=== PATIENT | female | born 1975 | race Caucasian/White ===

== ENCOUNTER → 2017-06-22 08:55 | Outpatient (CLI) | payer OTHER, SELFPAY ==
--- NOTE | 2017-06-22 08:59 | ECHOD_ITS ---
Reason For Study: PALPITATIONS Procedure This was a 2D Doppler, Color Flow transthoracic echocardiogram. Exam performed in department. Left Ventricle Normal LV size. Left ventricular systolic function is normal. The estimated ejection fraction is 55 %. No evidence for diastolic dysfunction. No regional wall motion abnormalities noted. Right Ventricle Normal RV size. Normal systolic function. Atria Normal left atrium. Normal right atrium. Mitral Valve Normal mitral valve. Mild (1+) eccentric mitral valve insufficiency. Tricuspid Valve Normal tricuspid valve. Mild tricuspid valve insufficiency. Pulmonary artery systolic pressure is 24 mmHg. Aortic Valve Normal aortic valve. Trisinus/trileaflet aortic valve. Pulmonic Valve Normal pulmonic valve. Great Vessels Normal aortic root. The pulmonary artery is normal size. Normal inferior vena cava. Pericardium/Pleural Trivial pericardial effusion. MMode/2D Measurements & Calculations LVIDd: 5.0 cm IVSd: 0.86 cm Ao root diam: 3.5 cm LVIDs: 3.4 cm LVPWd: 0.96 cm LA dimension: 3.5 cm RVDd: 3.8 cm FS: 31.2 % LAV(MOD-bp): 63.7 ml EDV(MOD-sp4): 135.1 ml EDV(MOD-sp2): 119.8 ml LAV(MOD-bp) Indexed: 36.3 ml/m2 ESV(MOD-sp4): 67.0 ml EF(MOD-sp2): 56.7 % LAV(MOD-sp2): 72.9 ml EF(MOD-sp4): 50.4 % LAV(MOD-sp4): 43.6 ml SV(MOD-sp4): 68.0 ml SV(MOD-sp2): 67.9 ml LA A4 area: 16.0 cm2 RA A4 area: 17.7 cm2 Doppler Measurements & Calculations MV E max aubrie: 81.3 cm/sec Ao V2 max: 145.5 cm/sec LV V1 max: 104.1 cm/sec MV A max aubrie: 63.5 cm/sec Ao max P.5 mmHg LV V1 max P.3 mmHg MV E/A: 1.3 PA V2 max: 96.1 cm/sec PI end-d aubrie: 107.2 cm/sec TR max aubrie: 217.9 cm/sec TR max P.0 mmHg Interpretation Summary Normal LV size. Left ventricular systolic function is normal. The estimated ejection fraction is 55 %. No evidence for diastolic dysfunction. Mild tricuspid valve insufficiency. Pulmonary artery systolic pressure is 24 mmHg. Ordering Physician: Kemar Adler Referring Physician: Kemar Adler Performed By: Naila Be, OFELIACS, RVT
== END ==
PROVIDERS: Family Provider Family Medicine; PCP Family Medicine; Visit Provider Family Medicine
DX: R06.00 Dyspnea, unspecified (principal); I10 Essential (primary) hypertension; R00.2 Palpitations
CPT/HCPCS: 93306

== ENCOUNTER → 2017-06-24 08:55 | Outpatient (CLI) | payer OTHER, SELFPAY ==
--- NOTE | 2017-06-24 08:57 | BI_ITS ---
MAMMOGRAPHY - BILATERAL SCREENING REASON FOR EXAM: Female, 42 years old. Routine annual screening examination. PERTINENT HISTORY: Non-contributory. TECHNIQUE: Digital bilateral breast paty (3D mammographic acquisition) in the CC and MLO projections. 2-D mediolateral oblique (MLO) and craniocaudad (CC) views of both breasts were obtained. CAD: Full Field Digital Mammography with Computer Added Detection was performed. COMPARISON: Comparison is made with prior study dated September 27, 2016 and February 12, 2015. FINDINGS: Breast Composition: The breasts are extremely dense, which lowers the sensitivity of mammography. There are no dominant masses or suspicious calcifications. No other significant abnormalities are identified. There has been no significant change since the prior study. BI/SCREENING MAMM (CAD), BILAT IMPRESSION: Stable bilateral screening mammogram. Yearly follow-up mammogram recommended. (A) ASSESSMENT CATEGORY: BIRADS Category 1: Negative. A letter regarding these results will be sent to the patient by the facility within 30 days. Approximately 10% of breast cancers are not detected by mammography. A normal mammogram should not delay biopsy of a clinically suspicious abnormality. [id number] Electronically Signed: Derick Finch MD at 10:48 EDT Tel [phone], Service support ,
--- NOTE | 2017-06-24 08:59 | BD_ITS ---
STUDY: DUAL ENERGY X-RAY ABSORPTIOMETRY / DXA REASON FOR EXAM: Female, 42 years old. Loss of height. TECHNIQUE: Bone Mineral Density (BMD) measurements of lumbar spine and bilateral hips were obtained. COMPARISON: None. FINDINGS: Lumbar Spine (L1-L4): g/cm2 (1.069) / T-score (-0.9) / Z-score (-0.9) Findings are suggestive of normal bone density with a low fracture risk. Left Femur Total: g/cm2 (1.017) / T-score (0.1) / Z-score (0.3) Left Femoral Neck: g/cm2 (0.955) / T-score (-0.6) / Z-score (-0.2) Right Femur Total: g/cm2 (0.999) / T-score (-0.1) / Z-score (0.2) Right Femoral Neck: g/cm2 (0.997) / T-score (-0.3) / Z-score (0.1) BD/Dexa Bone Density Study IMPRESSION: The patient is considered normal as outlined below according to [place] Organization (WHO) criteria with a low fracture risk. Reference Information: The T-score is the number of standard deviations above or below the standard which is normal for young adults at their peak bone mineral density. The World Health Organization (WHO) interprets the T-scores as follows: Above -1 Normal bone density Between -1 and -2.5 Osteopenia Equal to / or below -2.5 Osteoporosis As a practical clinical guideline, osteopenia may be graded as follows: Mild -1 through -1.5 Moderate -1.6 through -2.0 Severe -2.1 through -2.4 The Z-score is the number of standard deviations above or below age-matched controls. A Z-score of less than -1.5 would be considered abnormal. References: 1. NIH Osteoporosis and Related Bone Diseases http://www.osteo.org 2. International Society for Clinical Densitometry http://www.iscd.org 3. National Osteoporosis Foundation http://www.nof.org Electronically Signed: Derick Finch MD at 10:37 EDT Tel [phone], Service support ,
== END ==
PROVIDERS: Family Provider Family Medicine; PCP Family Medicine; Visit Provider Obstetrics & Gynecology
DX: Z12.31 Encounter for screening mammogram for malignant neoplasm of breast (principal); R29.890 Loss of height
CPT/HCPCS: 77062; 77067; 77080; G0279

== ENCOUNTER → 2017-11-09 07:51 | Outpatient (CLI) | payer OTHER, SELFPAY ==
[2017-11-09 12:16] LABS: Absolute Lymphocyte Count 0.65 X10^3/ul (0.83-4.51); Absolute Neutrophil Count 2.9 X10^3/uL (2.0-7.7); Basophil# 0.02 X10^3/uL; Basophil% 0.5 % (0-1); Eosinophil# 0.03 X10^3/uL; Eosinophils% 0.8 % (0-5); Hematocrit 31.8 % (37-47); Hemoglobin 10.6 g/dl (12.0-15.0); Lymphocyte # 0.65 X10^3/ul (4.0); Lymphocyte % 16.7 % (19-41); Mean Corp Hgb Conc 33.3 g/gl (32-36); Mean Corpuscular Hgb 32.8 pg (27.0-32.0); Mean Corpuscular Volume 98.5 fL (81-99); Mean Platelet Vol. 8.3 fl (6.2-12.0); Monocyte% 7.7 % (0-10); Neutrophil # 2.89 X10^3/uL (2.7-7.7); Platelet Count 170 K/mm3 (150-450); RBC Distribution Width CV 13.6 % (11.6-14.6); RBC Distribution Width SD 49.3 fl (35.1-43.9); Red Blood Count 3.23 M/mm3 (4.2-5.4); White Blood Count 3.9 K/mm3 (4.4-11.0)
[2017-11-09 12:17] LABS: POSITIVE COUNT NO; POSITIVE DIFFERENTIAL NO; POSITIVE MORPHOLOGY NO
[2017-11-09 12:39] LABS: ALB/GLOB Ratio 1.2 RATIO (0.9-2.4); AST(SGOT) 50 U/L (15-37); Alanine Aminotransfer ALT/SGPT 47 U/L (13-56); Albumin, Serum 3.5 g/dL (3.2-5.0); Alkaline Phosphatase 46 U/L (45-117); Anion Gap 6 (5-15); BUN 16 mg/dL (7-18); BUN/Creat Ratio 20.1 RATIO (10-20); Calcium,Total 8.4 mg/dL (8.5-10.1); Chloride 103 mmol/L (98-107); Cholesterol 172 mg/dL (200); EST Glomerular Filtration Rate 85 mL/min (>60); Est Glom Filt Rate - Afr Amer 103 mL/min (>60); Ferritin 27 ng/mL (8-252); Glucose 78 mg/dL (74-106); High Density Lipoprotein 80 mg/dL; Iron 66 ug/dL (50-170); Potassium 4.4 mmol/L (3.5-5.1); Protein, Total 6.5 g/dL (6.4-8.2); Sodium Level 138 mmol/L (136-145); Triglycerides 60 mg/dL; Very Low Density Lipoprotein 12 mg/dL (5-40)
[2017-11-10 10:03] LABS: Vitamin B12 686 pg/mL (211-911); Vitamin D,25 Hydroxy 70.4 ng/mL (29.95-100.01)
== END ==
PROVIDERS: Family Provider Family Medicine; PCP Family Medicine; Visit Provider Family Medicine
DX: I10 Essential (primary) hypertension (principal); D64.9 Anemia, unspecified; R63.0 Anorexia; E55.9 Vitamin D deficiency, unspecified; R53.83 Other fatigue
CPT/HCPCS: 36415; 80053; 80061; 82306; 82607; 82728; 83540; 85025

== ENCOUNTER → 2017-12-17 09:13 | Outpatient (CLI) | payer OTHER, SELFPAY ==
--- NOTE | 2017-12-17 09:20 | EKG12_ITS ---
Test Reason : PALPS,HTN Blood Pressure : / mmHG Vent. Rate : 059 BPM Atrial Rate : 059 BPM P-R Int : 176 ms QRS Dur : 088 ms QT Int : 426 ms P-R-T Axes : 073 010 051 degrees QTc Int : 421 ms Sinus bradycardia Low voltage QRS Borderline ECG Confirmed by STEVEN BLAND, MILVIA ([id number]), editorial cartoonist POPPY ROSAS ([id number]) on 12/20/2017 2:22:27 PM Referred By: KEN FERRER Confirmed By:MILVIA HARRIS MD
== END ==
PROVIDERS: Family Provider Family Medicine; PCP Family Medicine; Visit Provider Family Medicine
DX: I10 Essential (primary) hypertension (principal); R00.2 Palpitations
CPT/HCPCS: 93005; 93225; 93226

== ENCOUNTER → 2018-05-05 08:46 | Outpatient (CLI) | payer OTHER, SELFPAY ==
[2018-05-05 08:46] VITALS: BMI 18.6
[2018-05-05 12:02] LABS: Absolute Lymphocyte Count 1.04 X10^3/ul (0.83-4.51); Absolute Neutrophil Count 3.1 X10^3/uL (2.0-7.7); Basophil# 0.04 X10^3/uL; Basophil% 0.8 % (0-1); Eosinophil# 0.08 X10^3/uL; Eosinophils% 1.7 % (0-5); Hematocrit 42.1 % (37-47); Hemoglobin 13.4 g/dl (12.0-15.0); Lymphocyte # 1.04 X10^3/ul (4.0); Lymphocyte % 21.7 % (19-41); Mean Corp Hgb Conc 31.8 g/gl (32-36); Mean Corpuscular Hgb 29.6 pg (27.0-32.0); Mean Corpuscular Volume 93.1 fL (81-99); Mean Platelet Vol. 8.9 fl (6.2-12.0); Monocyte# 0.48 X10^3/uL; Neutrophil # 3.11 X10^3/uL (2.7-7.7); Platelet Count 197 K/mm3 (150-450); RBC Distribution Width CV 14.6 % (11.6-14.6); RBC Distribution Width SD 49.5 fl (35.1-43.9); Red Blood Count 4.52 M/mm3 (4.2-5.4); White Blood Count 4.8 K/mm3 (4.4-11.0)
[2018-05-05 12:03] LABS: POSITIVE COUNT NO; POSITIVE DIFFERENTIAL NO; POSITIVE MORPHOLOGY NO
[2018-05-05 12:18] LABS: AST(SGOT) 39 U/L (15-37); Alanine Aminotransfer ALT/SGPT 43 U/L (13-56); Albumin, Serum 3.8 g/dL (3.2-5.0); Alkaline Phosphatase 68 U/L (45-117); Anion Gap 9 (5-15); BUN 21 mg/dL (7-18); Calcium,Total 8.4 mg/dL (8.5-10.1); Chloride 104 mmol/L (98-107); Cholesterol 211 mg/dL (200); Creatinine, Serum 0.88 mg/dL (0.55-1.02); EST Glomerular Filtration Rate 76 mL/min (>60); Est Glom Filt Rate - Afr Amer 92 mL/min (>60); Ferritin 13 ng/mL (8-252); Globulin 3.7 g/dL (2.2-4.2); Glucose 91 mg/dL (74-106); High Density Lipoprotein 118 mg/dL; Iron 43 ug/dL (50-170); Potassium 4.1 mmol/L (3.5-5.1); Protein, Total 7.5 g/dL (6.4-8.2); Sodium Level 141 mmol/L (136-145); Triglycerides 45 mg/dL; Very Low Density Lipoprotein 9 mg/dL (5-40)
[2018-05-05 12:20] LABS: Vitamin B12 951 pg/mL (211-911); Vitamin D,25 Hydroxy 40.5 ng/mL (29.95-100.01)
== END ==
PROVIDERS: Family Provider Family Medicine; PCP Family Medicine; Visit Provider Family Medicine
DX: Z00.00 Encounter for general adult medical examination without abnormal findings (principal); I10 Essential (primary) hypertension; E55.9 Vitamin D deficiency, unspecified; E46 Unspecified protein-calorie malnutrition; D64.9 Anemia, unspecified
CPT/HCPCS: 36415; 80053; 80061; 82306; 82607; 82728; 83540; 85025

== ENCOUNTER 2021-06-23 13:13 | Outpatient (CLI) | payer OTHER, SELFPAY ==
--- NOTE | 2021-06-23 13:16 | BI_ITS ---
MAMMOGRAPHY - BILATERAL SCREENING REASON FOR EXAM: Female, 46 years old. Routine annual screening examination. PERTINENT HISTORY: Non-contributory. TECHNIQUE: Digital bilateral breast jordin (3D mammographic acquisition) in the CC and MLO projections. 2-D mediolateral oblique (MLO) and craniocaudad (CC) views of both breasts were obtained. CAD: Full Field Digital Mammography with Computer Added Detection was performed. COMPARISON: Comparison is made with prior study 06/24/2017 and 03/30/2006. FINDINGS: Breast Composition: The breasts are heterogeneously dense, which may obscure small masses. There are no dominant masses or suspicious calcifications. Since prior study, the amount of breast tissue has decreased. 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 Stable benign-appearing bilateral axillary lymph nodes. No other significant abnormalities are identified. BI/SCRN MAMM (CAD)W/JORDIN BILAT IMPRESSION: Stable bilateral screening mammogram. Yearly follow-up mammogram recommended. (A) ASSESSMENT CATEGORY: BIRADS Category 2: Benign. A letter regarding these results will be sent to the patient by the facility within 30 days. Approximately 10% of breast cancers are not detected by mammography. A normal mammogram should not delay biopsy of a clinically suspicious abnormality. [id number] Electronically Signed: Derick Finch MD at 14:01 EDT ,
== END 2021-06-23 23:59 | disposition home or self-care (01) ==
PROVIDERS: PCP Family Medicine; Visit Provider Family Medicine
DX: Z12.31 Encounter for screening mammogram for malignant neoplasm of breast (principal)
CPT/HCPCS: 77063; 77067

== ENCOUNTER → 2021-10-03 | Outpatient (CLI) | payer OTHER, SELFPAY ==
[2021-10-03 13:53] LABS: Color, Urine Yellow (Yellow); Glucose, Dipstick Normal (Normal); Ketone-Dipstick Negative (Negative); Leukocyte Esterase-Dipstick 25 /ul (Negative); Nitrite-Dipstick Negative (Negative); Occult Blood-Urine Negative /ul (Negative); Protein-Dipstick 15 mg/dl (Negative); Urine Bilirubin Dipstick Negative (Negative); Urine Clarity Clear (Clear); Urine Urobilinogen Normal (Normal)
[2021-10-03 13:57] LABS: Hematocrit 36.8 % (37-47); Mean Corp Hgb Conc 35.3 g/dL (32-36); Mean Corpuscular Hgb 34.1 pg (27.0-32.0); Mean Corpuscular Volume 96.6 fL (81-99); Mean Platelet Vol. 9.9 fl (6.2-12.0); Platelet Count 159 K/mm3 (150-450); RBC Distribution Width CV 11.9 % (11.6-14.6); RBC Distribution Width SD 41.6 fl (35.1-43.9); Red Blood Count 3.81 M/mm3 (4.2-5.4); White Blood Count 4.4 K/mm3 (4.4-11.0)
[2021-10-03 15:13] LABS: ALB/GLOB Ratio 1.1 RATIO (0.9-2.4); AST(SGOT) 57 U/L (15-37); Alanine Aminotransfer ALT/SGPT 63 U/L (13-56); Albumin, Serum 3.8 g/dL (3.2-5.0); Alkaline Phosphatase 46 U/L (45-117); Anion Gap 7 (5-15); BUN 13 mg/dL (7-18); BUN/Creat Ratio 13.3 RATIO (10-20); Calcium,Total 8.9 mg/dL (8.5-10.1); Chloride 108 mmol/L (98-107); Cholesterol 151 mg/dL (200); Creatinine, Serum 0.97 mg/dL (0.55-1.02); EST Glomerular Filtration Rate 66 mL/min (>60); Est Glom Filt Rate - Afr Amer 80 mL/min (>60); Ferritin 183 ng/mL (8-252); Globulin 3.5 g/dL (2.2-4.2); Glucose 87 mg/dL (74-106); High Density Lipoprotein 46 mg/dL; Iron 128 ug/dL (50-170); Iron Binding Capacity,Total 345 ug/dL (250-450); PERCENT IRON SATURATION 37.1 % (15.0-55.0); Potassium 3.9 mmol/L (3.5-5.1); Protein, Total 7.3 g/dL (6.4-8.2); Sodium Level 140 mmol/L (136-145); Thyroid Stim Hormone (TSH) 2.72 uIU/mL (0.358-3.74); Triglycerides 161 mg/dL; Very Low Density Lipoprotein 32 mg/dL (5-40)
[2021-10-06 08:08] LABS: Vitamin B12 575 pg/mL (211-911); Vitamin D,25 Hydroxy 77.9 ng/mL
== END | disposition home or self-care (01) ==
LOC: LAB 12:32
PROVIDERS: PCP Family Medicine; Referring Provider Physician Assistant; Visit Provider Physician Assistant
DX: Z79.899 Other long term (current) drug therapy (principal)
CPT/HCPCS: 36415; 80053; 80061; 81002; 82306; 82607; 82728; 82746; 83540; 83550; 84443; 85027

== ENCOUNTER → 2023-10-25 | Outpatient (CLI) | payer OTHER, SELFPAY ==
--- NOTE | 2023-10-25 14:11 | BI_ITS ---
MAMMOGRAPHY - BILATERAL SCREENING REASON FOR EXAM: Female, 48 years old. Routine annual screening examination. PERTINENT HISTORY: Non-contributory. TECHNIQUE: Digital bilateral breast jordin (3D mammographic acquisition) in the CC and MLO projections. 2-D mediolateral oblique (MLO) and craniocaudad (CC) views of both breasts were obtained. CAD: Full Field Digital Mammography with Computer Added Detection was performed. COMPARISON: Comparison is made with prior study of June 23, 2021 and June 24, 2017. FINDINGS: Breast Composition: The breasts are heterogeneously dense, which may obscure small masses. There are no dominant masses or suspicious calcifications. Stable small benign-appearing bilateral axillary lymph nodes. No other significant abnormalities are identified. There has been no significant change since the prior study. BI/SCRN MAMM (CAD)W/JORDIN BILAT IMPRESSION: Stable bilateral screening mammogram. Yearly follow-up mammogram recommended. (A) ASSESSMENT CATEGORY: BIRADS Category 2: Benign. A letter regarding these results will be sent to the patient by the facility within 30 days. Approximately 10% of breast cancers are not detected by mammography. A normal mammogram should not delay biopsy of a clinically suspicious abnormality. [id number] Electronically Signed: Derick Finch MD at 15:26 EDT ,
== END | disposition home or self-care (01) ==
LOC: OPBI 14:09
PROVIDERS: PCP Family Medicine; Referring Provider Family Medicine; Visit Provider Family Medicine
DX: Z12.31 Encounter for screening mammogram for malignant neoplasm of breast (principal)
CPT/HCPCS: 77063; 77067

== ENCOUNTER → 2024-08-17 | Outpatient (CLI) | payer OTHER, SELFPAY ==
--- OUTSIDE RECORDS SUMMARY | 2024-08-17 11:23 | XMS RPT_ITS | CCD ---
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 noted to upper left lobe which raises the possibility of pneumonia. Recommend follow-up films to ensure resolution ACTIONABLE RESULT: FOLLOW-UP Acuity: Actionable Findings: Thoracic-Other Routing Code: CT_1 Recommendation: XR Chest 2 view Time Frame: 4-6 weeks COMMUNICATION: Results will be communicated with the ordering provider via [employer] staff message or phone message by [facility] within 2 business days of report finalization. --END OF FINDING-- Make Up Arranger: JOSELIN Transcribe Date/Time: Jan 06 2024 7:18P Dictated by : MADHAVI OLIVEROS MD This examination was interpreted and the report reviewed and electronically signed by: MADHAVI OLIVEROS MD on Jan 06 2024 7:20PM EST [id number] [id number] Invalid Interpretation Code [facility] XR Chest PA and LateralOrder ed By: [facility] Provider on 01-06-2024 Interpretation and review of laboratory results Abnormal [facility] Radiology Result ACTIONABLE Abnormal [facility] Comment on above: This report contains an incidental or actionable finding. This finding may be a new finding separate from the reason your provider ordered the imaging test or it may be an already known finding that needs additional or continued follow-up. Because of this incidental or actionable finding, you may need another test (imaging or a different type of test). Please contact your provider for the next steps. [facility] XR Chest PA and Lateralon IMPRESSION: Small patchy nodular density is noted to upper left lobe which raises the possibility of pneumonia. Recommend follow-up films to ensure resolution ACTIONABLE RESULT: FOLLOW-UP Acuity: Actionable Findings: Thoracic-Other Routing Code: CT_1 Recommendation: XR Chest 2 view Time Frame: 4-6 weeks COMMUNICATION: Results will be communicated with the ordering provider via [employer] staff message or phone message by [facility] within 2 business days of report finalization. --END OF FINDING-- Make Up Arranger: PSCCoco Transcribe Date/Time: Jan 06 2024 7:18P Dictated by : MADHAVI OLIVEROS MD This examination was interpreted and the report reviewed and electronically signed by: MADHAVI OLIVEROS MD on Jan 06 2024 7:20PM [facility] DIVISION OF RADIOLOGY * * *Final Report* * * DATE OF EXAM: Jan 06 2024 7:09PM WOX [id number] - XR CHEST 2V FRONTAL/LAT / PROCEDURE REASON: SOB (shortness of breath) * * * * Physician Interpretation * * * * EXAMINATION: CHEST RADIOGRAPH (2 VIEW FRONTAL & LATERAL) CLINICAL HISTORY: SOB (shortness of breath) MQ: XC2_6 EXAM DATE/TIME: 01/06/2024 7:09 PM COMPARISON: No relevant prior studies available. RESULT: Lines, tubes, and devices: None. Lungs and pleura: A small patchy nodular densities noted in the mid to upper left lung. Otherwise, the lungs are clear. No pleural effusions are identified. Cardiomediastinal silhouette: The cardiac silhouette appears within normal limits. The thoracic aorta is tortuous. Bones and soft tissues: Degenerative changes are present within the thoracic spine. DIVISION OF RADIOLOGY Provider, [facility] - 01/06/2024 * * *Final Report* * * DATE OF EXAM: Jan 06 2024 7:09PM WOX 5291 - XR CHEST 2V FRONTAL/LAT / PROCEDURE REASON: SOB (shortness of breath) * * * * Physician Interpretation * * * * EXAMINATION: CHEST RADIOGRAPH (2 VIEW FRONTAL & LATERAL) CLINICAL HISTORY: SOB (shortness of breath) MQ: XC2_6 EXAM DATE/TIME: 01/06/2024 7:09 PM COMPARISON: No relevant prior studies available. RESULT: Lines, tubes, and devices: None. Lungs and pleura: A small patchy nodular densities noted in the mid to upper left lung. Otherwise, the lungs are clear. No pleural effusions are identified. Cardiomediastinal silhouette: The cardiac silhouette appears within normal limits. The thoracic aorta is tortuous. Bones and soft tissues: Degenerative changes are present within the thoracic spine. IMPRESSION IMPRESSION: Small patchy nodular density is noted to upper left lobe which raises the possibility of pneumonia. Recommend follow-up films to ensure resolution ACTIONABLE RESULT: FOLLOW-UP Acuity: Actionable Findings: Thoracic-Other Routing Code: CT_1 Recommendation: XR Chest 2 view Time Frame: 4-6 weeks COMMUNICATION: Results will be communicated with the ordering provider via [employer] staff message or phone message by [facility] within 2 business days of report finalization. --END OF FINDING-- Make Up Arranger: JOSELIN Transcribe Date/Time: Jan 06 2024 7:18P Dictated by : MADHAVI OLIVEROS MD This examination was interpreted and the report reviewed and electronically signed by: MADHAVI OLIVEROS MD on Jan 06 2024 7:20PM [facility] Radiology Study observation (narrative) [facility] CNOVon 12-17-2023 CNOV Office Visit (OBGYWM ) [address] ([id number]) 1975 F Date Time Provider Department 12/17/23 9:20 AM NYLA CERVANTES OBGYWM During your visit today, we recorded the following information about you: Weight Height Last Period 109.8 kg 1.753 m 12/05/23 Nyla Cervantes MD 12/17/2023 12:44 PM Signed Talent Management Manager offered: Patient declines. Roselyn is a 48 year old who presents for an annual gynecologic exam with complaints, PMDD . Lasts for about 2 weeks around menses. Has been diagnosed in the past. Is on Zoloft but has not has mental health follow up in years. Does have an appointment scheduled in feb. Discussed alternates that may help with PMDD. Was inquiring about HRT, however she does not have any irregularities right now with her cycles. A better choice would be to change her mental health medications and then see functional health to hormone testing if there is no improvement. Had several years of intense dieting and exercise that caused significant weight loss. Is doing better but does struggle on a daily basis. This is also why she wants to get back into mental health providers. Would like to restart counseling. Menses: cycles every 30 days and 5 days of flow. Contraception: vasectomy HPV vaccine: N/A Last Pap: 02/10/2017 normal HPV: 02/08/2017 negative History of abnormal pap: No Last mammogram: yes, nor,al Sexually active: Yes Mood swings: Yes OB History T0 L1 SAB0 IAB0 Ectopic0 Multiple0 Live Births0 Comment: First delivered 24 weeks [place] Gauger History LMP: 12/05/2023 (Exact Date), Having periods Age at Menarche: Age at First : Age at Menopause: Field Gauger History Comments: Sexual Activity: Yes; Male; had vasectomy 2011 Contraception: Vasectomy PAST MEDICAL HISTORY Diagnosis Date Depressive disorder, not elsewhere classified Esophageal reflux Generalized anxiety disorder Migraine without aura Morbid obesity (HCC) 2-25-10 stated BMI 45.7 Ht: 69 Wt: 310 lbs Other and unspecified hyperlipidemia Other chronic nonalcoholic liver disease Pain in joint, multiple sites Unspecified asthma(493.90) Unspecified essential hypertension PAST SURGICAL HISTORY Procedure Laterality Date NONE History reviewed. No pertinent family history.SOCIAL HISTORY Social History Tobacco Use Smoking status: Former Smokeless tobacco: Never Vaping Use Vaping status: Never Used Substance Use Topics Alcohol use: No Drug use: No REVIEW OF SYSTEMS Abdomen: No abdominal pain, nausea, vomiting, diarrhea, or constipation. No bloating, early satiety, indigestion, or increased flatulence. Bladder: No dysuria, gross hematuria, urinary frequency, urinary urgency, or incontinence. Breast: No breast lumps, nipple d/c, overlying skin changes, redness or skin retraction. Allergies and current medication updated:Yes SENSITIVE EXAM: The sensitive examination was discussed with the Patient or Patient's Authorized Science Technician. As applicable, any other physician, advance practice provider, medical student, or other health professional student that will be observing or involved in the sensitive examination for educational or training purposes was discussed with the Patient or Authorized Science Technician. The Patient or Authorized Science Technician has agreed to proceed with the sensitive examination. (Sensitive examination includes inspection and/or palpation of the breasts, pelvis, prostate and anorectal regions). EXAM: BP [declined bp being taken[ Ht 5' 9 (1.75m) Wt 242 lb (109.8kg) LMP 12/05/2023 BMI 35.72 kg/(m2). GENERAL: pleasant, female in no apparent distress HEENT: Normocephalic, atraumatic, mucus membranes moist, and no lesions NECK: Supple, full range of motion, no adenopathy, and thyroid normal DERMATOLOGY: Normal, without lesions, non-icteric, and non-hirsute BREAST: soft, non-tender, symmetric, no dominant mass, normal nipple-areolar complex, no lymphadenopathy, and no nipple discharge CHEST: Normal inspiratory effort ABDOMEN: soft, non-tender, and no masses PELVIC: external genitalia normal, normal Bartholin's glands, urethra, St. Gabriel's glands, no vulvar lesions, no cervical lesions, good vaginal support, physiologic discharge present, normal appearing perineal body and perianal region BIMANUAL: uterus normal size, shape and consistency, no adnexal masses, and non-tender RECTOVAGINAL: deferred. NEURO: alert and oriented x3,exam grossly non-focal EXTREMITIES: normal ASSESSMENT/PLAN: 1) Health maintenance: Pap done with HPV. Mammogram ordered. 2) Contraception: vasectomy. Contraceptive options reviewed and information provided. 3) STD screening: Declined STD check. 4) Follow up one year or sooner as needed Nyla Cervantes MD Allergies As of Date: 12/17/2023 Noted Allergy Reaction AMLODIP (more content not included)... Normal [facility] HIGH RISK HUMAN PAPILLOMA PERLA (HPV), PCR FOR DETECTION AND GENOTYPINGon 12-17-2023 HPV 16 Ag Ql (Unsp spec) Not detected Normal Not detected [facility] Comment on above: Order Comment: Speci men Type: FLUID SPECIMENOrdering Facility: [facility] Address: [address] [place] [address] Performed By: #### H PVHRT ####[facility] LABCLIA [id number] [place] [address] [place]#### [id number] ####[facility]ORATORYCLIA [id number] [address] STATES OF [facility] LABCLIA [id number] [place] [address] [place] HPV 18 Ag Ql (Unsp spec) Not detected Normal Not detected [facility] Comment on above: Order Comment: Speci men Type: FLUID SPECIMENOrdering Facility: [facility] Address: [address] [place] [address] Performed By: #### H PVHRT ####[facility] LABCLIA [id number] [place] [address] [place]#### [id number] ####[facility] LABORATORYCLIA [id number] [address] STATES OF [facility] LABCLIA [id number] [place] [address] [place] HPV 31+33+35+39+45+51+52 +56+58+59+66+68 DNA MARY BETH+probe Ql (Cvx) Not detected Normal Not detected [facility] Comment on above: Order Comment: Speci men Type: FLUID SPECIMENOrdering Facility: [facility] Address: [address] [place] [address] Result Comment: High Risk HPV Other Type includes HPV types 31, 33, 35, 39, 45, 51, 52, 56, 58, 59, 66 and 68. Performed By: #### H PVHRT ####[facility] LABCLIA [id number] [place] [address] [place]#### [id number] ####[facility] LABORATORYCLIA [id number] [place] [id number] [facility] LABCLIA [id number] [place] [address] [place] PAP TESTon 12-17-2023 ADEQUACY Satisfactory for interpretation. Normal [facility] Comment on above: Order Comment: Speci men Type: FLUID SPECIMENOrdering Facility: [facility] Address: [address] [place] [address] Performed By: #### H PVHRT ####[facility] LABCLIA [id number] [place] [address] [place]#### [id number] ####[facility] LABORATORYCLIA [id number] [address] LABCLIA [id number] [place] [address] [place] CASE REPORT Normal [facility] Comment on above: Order Comment: Speci men Type: FLUID SPECIMENOrdering Facility: [facility] Address: [address] [place] [address] Result Comment: Gyne cologic Cytology Report Case: [id number] Authorizing Provider: Nyla Cervantes MD Collected: 12/17/2023 01:00 PM Ordering Location: OB/Gynecology Received: 12/17/2023 04:42 PM First Screen: Gmitro, Sonido, CT, ASCP Specimen: Pap Test, ThinPrep, Cervix Performed By: #### H PVHRT ####[facility] LABCLIA [id number] [place] [address] [place]#### [id number] ####[facility] LABORATORYCLIA [id number] [address] STATES OF [facility] LABCLIA [id number] [place] [address] [place] CLINICAL HISTORY, CYTOLOGY, DIMENSIONAL INSPECTOR Routine Exam Normal [facility] Comment on above: Order Comment: Speci men Type: FLUID SPECIMENOrdering Facility: [facility] Address: [address] [place] [address] Performed By: #### H PVHRT ####[facility] LABCLIA [id number] [address] [address] [place]#### [id number] ####[facility] LABORATORYCLIA [id number] [place] [address] [place] [facility] LABCL[facility] [id number] [address] [address] [place] FINAL PERFORMING LAB Normal [facility] Comment on above: Order Comment: Speci men Type: FLUID SPECIMENOrdering Facility: [facility] Address: [address] [place] [address] Result Comment: Tech nical component, icu manager screening performed at [facility], [address] [place] [address] CLIA# [id number] Diagnostic interpretation performed at [facility], [address] [place] [address] CLIA# [id number] Oncology Account Specialist: Ken Garcia M.D. Performed By: #### H PVHRT ####[facility] LABCLIA [id number] [address] [address] [place]#### [id number] ####[facility] LABORATORYCLIA [id number] [place] [address] [place] [facility] LABCL[facility] [id number] [address] [address] [place] HPV REFLEX Yes HPV Normal [facility] Comment on above: Order Comment: Speci men Type: FLUID SPECIMENOrdering Facility: [facility] Address: [address] [place] [address] Performed By: #### H PVHRT ####[facility] LABCLIA [id number] [address] [address] [place]#### [id number] ####[facility] LABORATORYCLIA [id number] [place] [id number] [facility] LABCLIA [id number] [place] [address] [place] INTERPRETATION, CYTOLOGY, DIMENSIONAL INSPECTOR Normal [facility] Comment on above: Order Comment: Speci men Type: FLUID SPECIMENOrdering Facility: [facility] Address: [address] [place] [address] Result Comment: Nega tive for intraepithelial lesion or malignancy. Performed By: #### H PVHRT ####[facility] LABCLIA [id number] [place] [address] [place]#### [id number] ####[facility] LABORATORYCLIA [id number] [address] LABCLIA [id number] [place] [address] [place] LMP 12/05/2023 Normal [facility] Comment on above: Order Comment: Speci men Type: FLUID SPECIMENOrdering Facility: [facility] Address: [address] [place] [address] Performed By: #### H PVHRT ####[facility] LABCLIA [id number] [place] [address] [place]#### [id number] ####[facility] LABORATORYCLIA [id number] [place] [id number] [place] [facility] LABCLIA [id number] [place] [address] [place] PAP DISCLAIMER COMMENT The Pap Smear is a screening test for cervical cancer. False negative results occur with all screening tests, emphasizing the need for rescreening at recommended intervals, and clinical correlation. Normal [facility] Comment on above: Order Comment: Speci men Type: FLUID SPECIMENOrdering Facility: [facility] Address: [address] [place] [address] Performed By: #### H PVHRT ####[facility] LABCLIA [id number] [place] [address] [place]#### [id number] ####[facility] LABORATORYCLIA [id number] [address] LABCLIA [id number] [place] [address] [place] PAP CONTINUITY READER COMMENT This specimen has been analyzed by the ThinPrep Imaging System, an automated imaging and review system, which assists the laboratory in evaluating cells on ThinPrep Pap tests. Following automated imaging, selected gramajo from every slide are reviewed by a icu manager. Normal [facility] Comment on above: Order Comment: Speci men Type: FLUID SPECIMENOrdering Facility: [facility] Address: [address] [place] [address] Performed By: #### H PVHRT ####[facility] LABCLIA [id number] [place] [address] [place]#### [id number] ####[facility] LABORATORYCLIA [id number] [address] LABCLIA [id number] [place] [address] [place] SCRN MAMM (CAD)W/JORDIN BILATo n 10-25-2023 SCRN MAMM (CAD)W/JORDIN BILAT [facility] Imaging Services [address] [place], [place] [id number] SCRN MAMM (CAD)W/JORDIN BILAT MR#: [id number] Acct: [id number] Name: RO[address]LY[address] L[address] Breann Rep #: [id number] : 1975 F 48 From: Derick arriaza MD PCP: Dr. Ken Adler, DO Status: REG CLI Study: SCRN MAMM (CAD)W/JORDIN BILAT Date of Exam: 10/13 05/08 Exam# [id number] Ordering Dr: Ken Adler DO [id number] MAMMOGRAPHY - BILATERAL SCREENING REASON FOR EXAM: Female, 48 years old. Routine annual screening examination. PERTINENT HISTORY: Non-contributory. TECHNIQUE: Digital bilateral breast jordin (3D mammographic acquisition) in the CC and MLO projections. 2-D mediolateral oblique (MLO) and craniocaudad (CC) views of both breasts were obtained. CAD: Full Field Digital Mammography with Computer Added Detection was performed. COMPARISON: Comparison is made with prior study of June 23, 2021 and June 24, 2017. FINDINGS: Breast Composition: The breasts are heterogeneously dense, which may obscure small masses. There are no dominant masses or suspicious calcifications. Stable small benign-appearing bilateral axillary lymph nodes. No other significant abnormalities are identified. There has been no significant change since the prior study. BI/SCRN MAMM (CAD)W/JORDIN BILAT IMPRESSION: Stable bilateral screening mammogram. Yearly follow-up mammogram recommended. (A) ASSESSMENT CATEGORY: BIRADS Category 2: Benign. A letter regarding these results will be sent to the patient by the facility within 30 days. Approximately 10% of breast cancers are not detected by mammography. A normal mammogram should not delay biopsy of a clinically suspicious abnormality. [id number] Electronically Signed: Derick Finch MD at 15:26 EDT , CC: Dr. Ken Adler DO Make Up Arranger: Signed Normal [facility] CNOVon 09-06-2023 CNOV Office Visit (ORTHWS ) [address] ([id number]) 1975 F Date Time Provider Department 09/06/23 8:00 AM CLAUDETTE CHASE During your visit today, we recorded the following information about you: Arlette Duran MA 09/06/2023 9:16 AM Signed AMB ROOMING INTAKE FLOWSHEET DATA Pain Pain Level: 2 Pain Location: Knee-Right Description: Dull Duration Amount of Time: (ongoing) Frequency: Intermittent Intervention/Comfort measure: Other: See comment (none) Patient here today for 2 weeks 3 days post visit right knee meniscus tear. She would like an injection. Claudette Chase PA-C 09/06/2023 9:16 AM Signed Claudette Chase PA-C Department of Orthopaedics Orthopaedics [address] [facility] [address] Dept: [phone] Dept September 06, 2023 CHIEF COMPLAINT: Established Patient and Follow Up of the Right Knee. ASSESSMENT: S83.241A Acute medial meniscus tear of right knee, initial encounter (primary encounter diagnosis) M25.561, G89.29 Chronic pain of right knee M25.561, M25.461 Pain and swelling of knee, right SUMMARY/PLAN: Patient presents for a right knee corticosteroid injection. She had an MRI in outside facility, she has a meniscal tear but also some arthritis in the knee. She has never had a corticosteroid injection. We discussed that it may take 3 to 5 days for the injection to take effect. Injection is certainly repeatable if she finds to be beneficial. If no improvement with the injection then we can further discuss potential knee arthroscopy with meniscectomy. Large Joint Arthro/Inj: R knee joint Informed Consent Consent Obtained: Verbal [place] Protocol A moment to CARE was completed. SIGN IN Sign in communication not applicable due to emergent procedure. Personnel directly involved with the procedure wore the appropriate PPE. Special Equipment: N/A Patient/Surrogate Stated/Verified: Patient name, Date of , Relevant allergies and Intended procedure TIME OUT Intended patient and procedure match the source document(s). Consent documented and matches the intended procedure. Relevant labs, photos, and/or imaging studies have been reviewed. Correct side/site marked and visible. Medications required for procedure verified. No fire risk assessment and interventions applicable. No implant(s) inserted. 09/06/2023 9:16 AM The procedure site was prepped in the usual sterile fashion. Site: R knee joint Medications: 6 mg betamethasone acetate-betamethasone sodium phosphate 6 mg/mL Anesthetics: 5 mL lidocaine (PF) 10 mg/mL (1 %) Outcome: Tolerated well, no immediate complications Post-injection instructions were reviewed with the patient and the patient voiced understanding of these instructions. SIGN OUT All instruments, equipment, possible retained foreign bodies accounted for. Ms. Roselyn Lnae was advised as to contrast therapies and/or to take analgesics/anti-infla mmatories as needed and all contraindications were reviewed. Supporting Information Below: Medications: Current Outpatient Medications Medication Sig cloNIDine HCl (CATAPRES) 0.2 mg tablet Take 0.2 mg by mouth two times a day. metoprolol tartrate, short acting, (LOPRESSOR) 100 mg tablet Take 100 mg by mouth two times a day. Cholecalciferol, Vitamin D3, 2,000 unit cap VITAMIN D3 2000 UNIT CAPS sertraline (ZOLOFT) 100 mg tablet OXcarbazepine (TRILEPTAL) 150 mg tablet Take 1 tablet by mouth twice daily. acyclovir (ZOVIRAX) 800 mg tablet Take 0.5 tablets by mouth as directed. 400 mg po qid x 5 days prn outbreaks No current facility-administered medications for this visit. Allergies: Codeine and Zoloft [Sertraline Hcl] This note was partially generated using [employer] voice recognition system, and there may be some incorrect words, spellings, and punctuation that were not noted in checking the note before saving. Claudette Chase PA-C Referring Provider: CLAUDETTE CHASE [[id number]] Allergies As of Date: 09/06/2023 Noted Allergy Reaction CODEINE 10/04/2012 14 - Other: See Comments Comments: uncoherent ZOLOFT (SERTRALINE HCL) 02/03/2017 2 - Rash Date Reviewed: 09/06/2023 Reviewed by: Arlette Duran MA - Fully Assessed Reason for Visit: Established Patient [175] Follow Up [171] Primary Visit Diagnosis:Acute medial meniscus tear of right knee, initial encounter [S83.241A] Other Visit Diagnoses:Chronic pain of right knee [M25.561, G89.29] Pain and swelling of knee, right [M25.561, M25.461] Order(s):Large Joint Arthro/Inj: R knee joint [TCZ425] Order #: [id number] [] betamethasone acetate-betamethasone sodium phosphate 6 mg injection (CELESTONE)Disp: Rfl: [] lidocaine (PF) 10 mg/mL (1 %) 5 mL injection (XYLOCAINE)Disp: Rfl: Prescriptions as of 09/06/2023 - cloNIDine HCl (CATAPRES) 0.2 mg tablet Take 0.2 mg by mouth two times a d (more content not included)... Normal [facility] Large Joint Arthro/Inj: R kn ee jointon 09-06-2023 Claudette Chase PA-C 09/06/2023 9:16 AM Large Joint Arthro/Inj: R knee joint Informed Consent Consent Obtained: Verbal [place] Protocol A moment to CARE was completed. SIGN IN Sign in communication not applicable due to emergent procedure. Personnel directly involved with the procedure wore the appropriate PPE. Special Equipment: N/A Patient/Surrogate Stated/Verified: Patient name, Date of , Relevant allergies and Intended procedure TIME OUT Intended patient and procedure match the source document(s). Consent documented and matches the intended procedure. Relevant labs, photos, and/or imaging studies have been reviewed. Correct side/site marked and visible. Medications required for procedure verified. No fire risk assessment and interventions applicable. No implant(s) inserted. 09/06/2023 9:16 AM The procedure site was prepped in the usual sterile fashion. Site: R knee joint Medications: 6 mg betamethasone acetate-betamethasone sodium phosphate 6 mg/mL Anesthetics: 5 mL lidocaine (PF) 10 mg/mL (1 %) Outcome: Tolerated well, no immediate complications Post-injection instructions were reviewed with the patient and the patient voiced understanding of these instructions. SIGN OUT All instruments, equipment, possible retained foreign bodies accounted for. [facility] CNOVon 08-20-2023 CNOV Office Visit (ORTHWS ) [address]SELYN L[address] ([id number]) 1975 F Date Time Provider Department 08/20/23 9:30 AM CLAUDETTE CHASE During your visit today, we recorded the following information about you: Claudette Chase PA-C 08/30/2023 4:03 PM Signed Claudette Chase PA-C Department of Orthopaedics Orthopaedics [address] [facility] [address] Dept: [phone] Dept August 20, 2023 CHIEF COMPLAINT: New and Knee Pain of the Right Knee Ms. Roselyn Lane is a 48 year old female who presents with pain in her right knee which has been bothering her off and on for about the past 5 years. Patient reports that she was struggling with anorexia 5 years ago and was over exercising on a daily basis. She reports she was doing a [employer], biking or running she estimates that she was working out for at least 5 to 8 hours/day. She was having some discomfort in the right knee but kept pushing through. About 2 years ago the pain became more intense. She continued to run several miles a day and was only applying compression to the knee. She has since cut back on exercising. She is recovering from her anorexia. She complains of swelling along the superior lateral aspect of the knee as well as discomfort medially with certain activities such as pivoting or deep knee bends. She was seen at [facility] and had a right knee MRI about 5 weeks ago, she reports that she has a posterior medial meniscus tear. Unfortunately our computer not working today and I cannot review her images. She is not taking any type of an oral anti-inflammatory, she did try some oral prednisone but it gave her headache. She has not had a corticosteroid injection in the past. ASSESSMENT: S83.241A Acute medial meniscus tear of right knee, initial encounter (primary encounter diagnosis) M25.561, G89.29 Chronic pain of right knee M25.561, M25.461 Pain and swelling of knee, right PLAN: Unfortunately our computer system was not at the morning at the time of the patient's visit. I did contact her via telephone and we discussed her MRI results. She certainly has a meniscal tear but also has some osteoarthritis of the knee. I think it would be reasonable for her to schedule a follow-up appointment so that we can try a corticosteroid injection. Certainly if pain persist we can entertain a knee arthroscopy for the meniscal tear. Patient agrees to plan. Ms. Roselyn Lane was advised as to contrast therapies and/or to take analgesics/anti-infla mmatories as needed and all contraindications were reviewed. OBJECTIVE: Ms. Roselyn Lane is a pleasant 48 year old in no apparent distress. Gen:LMP 08/15/2016 nl development, obese, no deformities ENT: Normocephalic, normal hearing, moist mucosa CV: Pulses:DP/PT= 2+ and symmetric, capillary refill < 2 secs, no peripheral edema/varicosities Skin: no rash, bruising or lesions. Good turgor. Psych: cooperative and appropriate, alert and oriented x 3, good mood and affect. Musculoskeletal: KNEE EXAM: Right: Alignment: Varus deformity, Partially Correctable Range of motion is lacking a few degrees secondary to tight hamstrings degrees in extension and 100 degrees of flexion. Extension La degrees Pain with ROM: Yes Effusion: Mild Tender to the palpation of Patellar tendon, Posterior Knee, Medial femoral condyle, and Medial joint line Pain with patellar compression: No Stability: Anterior/Posterior stable and Varus/Valgus stable Hip Exam: flexion to 100+ degrees, full extension, internal/external rotation adequate, and no pain with log roll Neurovascular Status: Sensation Intact, Moves foot and ankle up AND down, and 2+ dorsalis pedis Imaging: See Epic Supporting Subjective Information Below: Past Surgical History: PAST SURGICAL HISTORY Procedure Laterality Date NONE Medications: Current Outpatient Medications Medication Sig acyclovir (ZOVIRAX) 800 mg tablet Take 0.5 tablets by mouth as directed. 400 mg po qid x 5 days prn outbreaks Cholecalciferol, Vitamin D3, 2,000 unit cap VITAMIN D3 2000 UNIT CAPS sertraline (ZOLOFT) 100 mg tablet OXcarbazepine (TRILEPTAL) 150 mg tablet Take 1 tablet by mouth twice daily. No current facility-administered medications for this visit. Allergies: Codeine and Zoloft [Sertraline Hcl] ROS: General (negative for fatigue, malaise, weight loss/gain) HEENT (negative for headache, earache, recent vision changes, sinus pain, sore throat) Respiratory (no recent shortness of breath, hemoptysis) CV (negative for chest tightness, palpitations) Musculoskeletal (see HPI) Psych (no depression, anxiety) This note was partially generated using Kaboodle voice recognition system, and there may be some incorrect words, spellings, and punctuation that were not noted in checking the note before saving. Claudette Chase (more content not included)... Normal [facility] Vitamin D 25 Hydroxy Levelon 05-04-2017 Calcidiol 51.02 ng/mL Normal 30.00-100.00 [facility] Comment on above: Result Comment: MESERET BEATTY NOTE OF 11/25/2011::NEW METHOD AND INTERPRETIVE DATA Vitamin D Status Range Deficiency <20 ng/mL(50 nmol/L) Insufficiency 20-30 ng/mL(50-75 nmol/L) Sufficiency 30-100 ng/mL(75-250 nmol/L) Toxicity >100 ng/mL (250 nmol/L) Performed By: #### 6 9742-5, 1988-05 ####SHERYL [address]#### [address]-9 ####SHERYL [facility], [address] [place] [address]. C-Reactive Protein, High Sen sitivityon 05-03-2017 C reactive protein (hsCRP) mg/L Normal <0.748 [facility] Comment on above: Performed By: #### 5 7020-0, 24407-2 ####[facility], [address] [place] [address]. CBC with Differentialon 04-15 Basophils Auto #/vol (Bld) 0.10 thou/mcL Normal 0.00-0.20 [facility] Comment on above: Performed By: #### 6 9742, 1988-05 ####[facility]#### 577[address]-8 ####[facility], [address] [place] [address]. Basophils/100 WBC Auto (Bld) 1.7 % Normal 0.0-2.0 [facility] Comment on above: Performed By: #### 6 9742, 1988-05 ####[facility]#### 16772-8 ####[facility], [address] [place] [address]. Eosinophils 0.00 thou/mcL Normal 0.00-0.70 [facility] Comment on above: Performed By: #### 6 9742, 1988-05 ####[facility]#### 55571-6 ####[facility], [address] [place] [address]. Eosinophils/100 leukocytes 0.9 % Normal 0.0-7.0 [facility] Comment on above: Performed By: #### 6 9742, 1988-05 ####[facility]#### 93073-5 ####[facility], [address] [place] [address]. Erythrocyte distribution width Auto Ratio (RBC) 13.0 % Normal 11.0-14.8 [facility] Comment on above: Performed By: #### 6 9742, 1988-05 ####[facility]#### 69980-6 ####[facility], [address] [place] [address]. Erythrocytes (RBC) 3.88 million/mcL Normal 3.80-5.10 [facility] Comment on above: Performed By: #### 6 9742, 1988-05 ####UT[facility] [address]#### 35885-1 ####[facility], [address] [place] [address]. Hematocrit (HCT) 37.1 % Normal 35.0-45.0 [facility] Comment on above: Performed By: #### 6 9742, 1988-05 ####[address]#### 52440-3 ####[facility], [address] [place] [address]. Hemoglobin mass conc (Bld) 12.7 g/dL Normal 12.0-16.0 [facility] Comment on above: Performed By: #### 6 9742, 1988-05 ####[address]#### 00110-6 ####[facility], [address] [place] [address]. Lymphocytes 1.10 thou/mcL Normal 1.00-4.80 [facility] Comment on above: Performed By: #### 6 9742, 1988-05 ####[facility]#### 01872-6 ####[facility], [address] [place] [address]. Lymphocytes/100 leukocytes 22.4 % Normal 22.0-44.0 [facility] Comment on above: Performed By: #### 6 9742, 1988-05 ####[address]#### 55040-4 ####[facility], [address] [place] [address]. MCH 32.7 Picograms Normal 27.0-34.0 [facility] Comment on above: Performed By: #### 6 9742, 1988-05 ####SHERYL [address]#### 77285-7 ####[facility], [address] [place] [address]. MCHC mass conc (RBC) 34.3 g/dL Normal 32.0-36.0 [facility] Comment on above: Performed By: #### 6 9742, 1988-05 ####[address]#### 01721-3 ####[facility], [address] [place] [address]. MCV 95.4 fL Normal 80.0-97.0 [facility] Comment on above: Performed By: #### 6 9742, 1988-05 ####SHERYL [address]#### 49331-7 ####[facility], [address] [place] [address]. Monocytes 0.30 thou/mcL Normal 0.00-0.90 [facility] Comment on above: Performed By: #### 6 9742, 1988-05 ####[address]#### 98832-5 ####[facility], [address] [place] [address]. Monocytes/100 leukocytes 6.7 % Normal 0.0-12.0 [facility] Comment on above: Performed By: #### 6 9742, 1988-05 ####[facility] [address] [place] [address]#### 47438-5 ####[facility], [address] [place] [address]. Neutrophils 3.40 thou/mcL Normal 1.80-7.70 [facility] Comment on above: Performed By: #### 6 9742, 1988-05 ####[address]#### 23465-5 ####[facility], [address] [place] [address]. Neutrophils/100 WBC Auto (Bld) 68.3 % Normal 40.0-70.0 [facility] Comment on above: Performed By: #### 6 9742, 1988-05 ####[address]#### 09399-3 ####[facility], [address] [place] [address]. Platelet mean volume (PMV) 6.5 fL Normal 6.2-12.1 [facility] Comment on above: Performed By: #### 6 9742, 1988-05 ####[address]#### 35805-9 ####[facility], [address] [place] [address]. Platelets 205 thou/mcL Normal 142-424 [facility] Comment on above: Performed By: #### 6 9742, 1988-05 ####[address]#### 29691-6 ####[facility], [address] [place] [address]. WBC (Leukocytes) 5.0 thou/mcL Normal 4.6-10.2 [facility] Comment on above: Performed By: #### 6 9742, 1988-05 ####[facility]#### 89556-9 ####[facility], [address] [place] [address]. Comprehensive Metabolic Pane cristo 05-03-2017 Alanine aminotransferase (ALT) 25 Units/L Normal 14-63 [facility] Comment on above: Performed By: #### 6 9405-9, 58153-9, 32795-8, 36558-7, 15373- 8, 53500-5, 3016-3 ####[facility] [address], [place] Albumin 4.3 g/dL Normal 3.5-4.8 [facility] Comment on above: Performed By: #### 6 9405-9, 81049-5, 41041-6, 37528-9, 33917- 8, 47589-5, 3016-3 ####[facility] [address], [place] Alkaline phosphatase (ALP) 35 Units/L Normal 32-91 [facility] Comment on above: Performed By: #### 6 9405-9, 28094-1, 76393-3, 52258-5, 71199- 8, 25576-8, 3016-3 ####[facility] [address], [place] Anion gap 9.0 mmol/L Normal 6.0-18.0 [facility] Comment on above: Result Comment: PLEA SE NOTE:The calculated Anion Gap(AGAP) does not include Potassium. Performed By: #### 6 9405-9, 53778-2, 96062-4, 44189-5, 26584-1, 94181-7, 3016-3 ####[facility] [address], [place] Aspartate aminotransferase (AST) 31 Units/L Normal 15-41 [facility] Comment on above: Performed By: #### 6 9405-9, 77198-8, 51232-0, 86611-9, 65433- 8, 20806-3, 3016-3 ####[facility] [address], [place] Bilirubin (total) 0.7 mg/dL Normal 0.3-1.2 [facility] Comment on above: Performed By: #### 6 9405-9, 52851-0, 30959-7, 17031-3, 23904- 8, 33815-7, 3016-3 ####[facility] [address], [place] Calcium 8.9 mg/dL Normal 8.9-10.3 [facility] Comment on above: Performed By: #### 6 9405-9, 53275-1, 09372-6, 35111-2, 71213- 8, 89944-1, 3016-3 ####[facility] [address], [place] Chloride 95 mmol/L Low 98-107 [facility] Comment on above: Performed By: #### 6 9405-9, 59299-3, 65408-3, 80500-7, 74114- 8, 59488-6, 3016-3 ####[facility] [address], [place] CO2 25 mmol/L Normal 22-32 [facility] Comment on above: Performed By: #### 6 9405-9, 10913-3, 47441-8, 26123-1, 72798- 8, 84360-3, 3016-3 ####[facility] [address], [place] Creatinine 0.80 mg/dL Normal 0.60-1.30 [facility] Comment on above: Performed By: #### 6 9405-9, 63821-2, 88388-8, 83208-0, 92011- 8, 50584-4, 3016-3 ####[facility] [address], [place] Glucose mass conc 90 mg/dL Normal 70-110 [facility] Comment on above: Performed By: #### 6 9405-9, 47188-2, 75440-4, 35721-9, 62747- 8, 51996-1, 3016-3 ####[facility] [address], [place] Potassium molar conc 4.2 mmol/L Normal 3.6-5.1 [facility] Comment on above: Performed By: #### 6 9405-9, 35293-5, 05140-2, 28384-2, 60495- 8, 30827-4, 3016-3 ####[facility] [address], [place] Protein 6.4 g/dL Normal 6.1-7.9 [facility] Comment on above: Performed By: #### 6 9405-9, 18416-9, 67387-4, 31114-2, 39872- 8, 04314-4, 3016-3 ####[facility] [address], [place] Sodium 129 mmol/L Low 136-145 [facility] Comment on above: Performed By: #### 6 9405-9, 54687-0, 02387-2, 44478-8, 04358- 8, 47667-8, 3016-3 ####[facility] [address], [place] Urea nitrogen 19 mg/dL Normal 8-20 [facility] Comment on above: Performed By: #### 6 9405-9, 94968-0, 42823-2, 69711-8, 77618- 8, 95800-7, 3016-3 ####[facility] [address], [place] GFRaaon 05-03-2017 eGFR (black) mL/min/{1.73_m2} Normal [facility] Comment on above: Result Comment: The MDRD equation has not been validated for those over 70 years, women, patients with serious co-morbid conditions, or with extremes of bodysize, muscle mass of nutritional status. Performed By: #### 6 9405-9, 10398-7, 88638-3, 70807-4, 97727-3, 65367-4, 3016-3 ####[facility] [address], [place] GFRbbon 05-03-2017 eGFR (non-black) mL/min/{1.73_m2} Normal [facility] Comment on above: Performed By: #### 6 9405-9, 90005-8, 45513-1, 67881-9, 29634- 8, 76299-0, 3016-3 ####[facility] [address], [place] Magnesium Levelon 05-03-2017 Magnesium 1.9 mg/dL Normal 1.8-2.5 [facility] Comment on above: Performed By: #### 6 9405-9, 29329-6, 76331-7, 07186-2, 24797- 8, 65026-8, 3016-3 ####[address] Phosphorus Levelon 8 Phosphorus Level 4.0 mg/dL Normal 2.4-4.7 [facility] Comment on above: Performed By: #### 6 9405-9, 44907-1, 84425-1, 28358-5, 18134- 8, 10786-0, 3016-3 ####[facility] Sedimentation Rate rbcon Erythrocyte sedimentation rate 2 mm/h Normal 0-20 [facility] Comment on above: Performed By: #### 6 9742-5, 1988-05 ####[address]#### 95221-4 ####[facility], [address] [place] [address]. Thyroid Stimulating Hormoneo n 05-03-2017 Thyroid stimulating hormone (TSH) 1.67 mcIU/mL Normal 0.45-5.33 [facility] Comment on above: Result Comment: Upda brittany method and reference range as of 01/12/17. Performed By: #### 5 7020-0, 78876-1 ####[facility], [address] [place] [address]. Urinalysis Microscopicon Urine, erythrocytes in sediment by area /[HPF] Normal 0-5/HPF [facility] Comment on above: Performed By: #### 5 7020-0, 09081-9 ####[facility], [address] [place] [address]. Urine, leukocytes in sedmiment /[HPF] Normal 0-5/HPF [facility] Comment on above: Performed By: #### 5 7020-0, 20916-7 ####[facility], [address] [place] [address]. Urinalysis with Microscopic Automaticon 05-03-2017 Bilirubin Urine Negative Normal NEGATIVE [facility] Comment on above: Performed By: #### 5 20-0, 46464-2 ####[facility], [address] [place] [address]. Nitrite Urine Negative Normal NEGATIVE [facility] Comment on above: Performed By: #### 5 7020-0, 73078-3 ####[facility], [address] [place] [address]. Urine, appearance CLEAR Normal CLEAR [facility] Comment on above: Performed By: #### 5 20-0, 44381-9 ####[facility], [address] [place] [address]. Urine, color YELLOW Normal YELLOW [facility] Comment on above: Performed By: #### 5 20-0, 72206-8 ####[facility], [address] [place] [address]. Urine, glucose presence NORMAL Normal NORMAL [facility] Comment on above: Performed By: #### 5 20-0, 61779-6 ####[facility], [address] [place] [address]. Urine, hemoglobin presence Negative Normal NEGATIVE [facility] Comment on above: Performed By: #### 5 20-0, 72323-8 ####[facility], [address] [place] [address]. Urine, ketones presence Negative Normal NEGATIVE [facility] Comment on above: Performed By: #### 5 7020-0, 16638-2 ####[facility], [address] [place] [address]. Urine, leukocyte esterase presence 75/UL Abnormal NEGATIVE [facility] Comment on above: Performed By: #### 5 7020-0, 09256-3 ####[facility], [address] [place] [address]. Urine, pH 6.0 [pH] Normal 4.5-8.0 [facility] Comment on above: Performed By: #### 5 7020-0, 94516-9 ####[facility], [address] [place] [address]. Urine, protein Negative Normal NEGATIVE [facility] Comment on above: Performed By: #### 5 7020-0, 46241-4 ####[facility], [address] [place] [address]. Urine, specific gravity 1.013 Normal 1.002-1.030 [facility] Comment on above: Performed By: #### 5 7020-0, 28868-0 ####[facility], [address] [place] [address]. Urobilinogen Urine NORMAL Normal NORMAL [facility] Comment on above: Performed By: #### 5 7020-0, 76098-0 ####[facility], [address] [place] [address]. Office Visiton 07-15-2016 Documentation of current medications (procedure) Done Invalid Interpretation Code [facility] Work Phone: Tobacco use [facility] Never smoker Invalid Interpretation Code [facility] Work Phone: Vital Signs Date Time Vital Sign Value Performing Clinician Maurice chu 01-06-2024 18:22-0400 Body mass index (BMI) [Ratio] 35.91 kg/m2 Ketty Moomaw MANAGER MONITORING.FILTRATION SUPERVISOR Work Phone: [facility] 01-06-2024 18:22-0400 Body temperature 97.9 [degF] Ketty Moomaw MANAGER MONITORING.FILTRATION SUPERVISOR Work Phone: [facility] 01-06-2024 18:22-0400 Body weight 110.3 kg Ketty Moomaw MANAGER MONITORING.FILTRATION SUPERVISOR Work Phone: [facility] 01-06-2024 18:22-0400 Respiratory rate 18 /min Ketty Moomaw MANAGER MONITORING.FILTRATION SUPERVISOR Work Phone: [facility] 12-17-2023 09:23-0400 Body height 175.3 cm Nyla Cervantes MD Work Phone: [facility] 12-17-2023 09:23-0400 Body mass index (BMI) [Ratio] 35.74 kg/m2 Nyla Cervantes MD Work Phone: [facility] 12-17-2023 09:23-0400 Body weight 109.77 kg Nyla Cervantes MD Work Phone: [facility] Encounters Encounter Date Encounter Type Care Provider Facility Start: 07-03-2024 [facility] Facility: [facility] Start: 03-13-2024 End: 03-13-2024 [facility] Facility:[facility] Start: 01-06-2024 End: 01-06-2024 Subsequent hospital visit by physician [facility] Work Phone: Radiology Comment on above: SOB (shortness of br eath) [R06.02] Start: 01-06-2024 End: 01-06-2024 [facility] Facility:[facility] Start: 01-06-2024 End: 01-06-2024 Patient encounter procedure Ketty Fernández APRN.CNP Work Phone: [phone] Comment on above: SOB (shortness of br eath) (Primary Dx) Start: 01-06-2024 End: 01-06-2024 Telephone encounter Naomy Smith APRN.CNP Work Phone: [phone] Comment on above: Results Start: 12-17-2023 End: 12-17-2023 [facility] Facility:[facility] Start: 12-17-2023 End: 12-17-2023 Initial preventive medicine new patient 40-64yrs Nyla Cervantes MD Work Phone: OB/Gynecology Comment on above: Encounter for gyneco logical examination (general) (routine) without abnormal findings (Primary Dx); Screening for cervical cancer; Encounter for screening for human papillomavirus (HPV); Encounter for screening mammogram for breast cancer Start: 12-17-2023 End: 12-17-2023 Patient encounter status Nyla Cervantes MD Work Phone: [facility] Start: 10-25-2023 End: 10-25-2023 [facility] Facility:[facility] Start: 09-06-2023 End: 09-06-2023 ambulatory [facility] Facility:[facility] Start: 09-06-2023 End: 09-06-2023 Patient encounter procedure Claudette Janki PA-C Work Phone: Orthopaedics Comment on above: Acute medial meniscu s tear of right knee, initial encounter (Primary Dx); Chronic pain of right knee; Pain and swelling of knee, right Start: 08-26-2023 ambulatory Claudette Lexist z PA-C Work Phone: Orthopaedics Comment on above: Knee Start: 08-20-2023 End: 08-20-2023 ambulatory [facility] Facility:[facility] Start: 08-20-2023 End: 08-20-2023 Patient encounter procedure Claudette Kwabenavitz PA-C Work Phone: Orthopaedics Comment on above: Acute medial meniscu s tear of right knee, initial encounter (Primary Dx); Chronic pain of right knee; Pain and swelling of knee, right Start: 05-04-2017 End: 05-04-2017 Ambulatory MADHAVI COPELAND Facility:[facility] Procedures Date Procedure Procedure Detail Performing Clinician Start: 01-06-2024 Radiologic exam ches t 2 views Ketty Yasminw MANAGER MONITORING.FILTRATION SUPERVISOR Work Phone: Start: 09-06-2023 Arthrocentesis aspir &/inj major jt/bursa w/o us Claudette Vemabelvitz PA-C Work Phone: Plan of Treatment Date Care Activity Detail Author Start: 12-16-2028 Screening for malignant neoplasm of cervix Cervical Cancer Screening [facility] Start: 12-22-2024 End: 12-22-2024 Patient encounter procedure 12/22/2024 11:20 AM EDT Office Visit OB/Gynecology [address] [place] [address] Makeda Camara MD [address] [place] [address] annual OB/Gynecology Comment on above: annual Start: 05-30-2024 End: 05-30-2024 Patient encounter procedure 05/30/2024 8:00 AM EDT Office Visit OB/Gynecology [address] [place] [address] Arlette Martinez APRN.FILTRATION SUPERVISOR [address] [place] [address] New weight management consult OB/Gynecology Comment on above: New weight managemen t consult Start: 01-07-2024 End: 03-30-2024 XR Chest PA and Lateral XR CHEST 2V FRONTAL/LAT Radiology Routine Nodular radiologic density Expected: 01/07/2024, Expires: 03/30/2024 [facility] Work Phone: Comment on above: Expected: 01/07/2024 , Expires: 03/30/2024 Start: 11-14-2023 Covid-19 Vaccine ( season) Covid-19 Vaccine ( season) [facility] Start: 11-14-2023 Influenza vaccination C [facility] Start: 10-25-2023 End: 10-25-2023 Patient encounter procedure 10/25/2023 9:40 AM EDT Office Visit OB/Gynecology [address] [place] [id number] Mariaelena Welsh MD [address] [place] [address] Annual Exam OB/Gynecology Comment on above: Annual Exam Start: 09-06-2023 End: 09-06-2023 Patient encounter procedure 09/06/2023 8:00 AM EDT Office Visit Orthopaedics [address] [place] [id number] Claudette Chase PA-C [address] [place] [address] Follow up right knee - wants injection Orthopaedics Comment on above: Follow up right knee - wants injection Start: 03-15-2023 Behavioral Health Screening Behavioral Health Screening [facility] Start: 11-13-2022 Covid-19 Vaccine ( season) Covid-19 Vaccine () [facility] Start: 02-03-2022 Screening for malignant neoplasm of cervix Cervical Cancer Screening [facility] Start: 2022 Diabetes Screening Diabetes Screenin g [facility] Start: 2022 Lipid panel Lipid Screening [facility] Start: 2022 Screening for malignant neoplasm of colon [facility] Start: 2017 Screening for malignant neoplasm of breast Mammogram Screening [facility] Start: 07-15-2016 End: 07-15-2016 Appointment Appointment [facility] Work Phone: Start: 07-15-2016 End: 07-15-2016 X-ray exam of shoulder X-Ray, Shoulder [facility] Work Phone: Start: 01-09-1996 Hepatitis B Vaccine (1 of 3 - 19+ 3-dose series) Hepatitis B Vaccine (1 of 3 - 19+ 3-dose series) [facility] Start: 01-09-1996 Urine microalbumin profile DTaP,Tdap,Td Vaccine (1 - Tdap) [facility] Start: 1995 Anxiety Screening Anxiety Screening [facility] Start: 1995 Depression Screening Depression Scre ening [facility] Start: 1995 Hepatitis C screening Hepatitis C Sc reening [facility] Start: 1995 HIV screening HIV Screening [facility] End: 01-15-2025 DBT Breast - bilateral screening LINSEY SCREENING W JORDIN Radiology Routine Encounter for screening mammogram for breast cancer 1 Occurrences starting 12/17/2023 until 01/15/2025 [facility] Work Phone: Comment on above: 1 Occurrences starti ng 12/17/2023 until 01/15/2025 PAP TEST PAP TEST Lab [facility] Screening for cervical cancer Encounter for screening for human papillomavirus (HPV) 12/17/2023 1:00 PM EDT [facility] Payers Date Payer Category Payer Self-pay 2018 Unknown MMO [employer] PPO [id number] 2018-Present [phone] [address] [place] [address] PPO [id number] 2017 Unknown [id number] Unknown [id number] Unknown [id number] Unknown [id number] Social History Date Type Detail Facility Start: 10-04-2012 End: 01-06-2024 Tobacco smoking status NHIS Ex-smoker [facility] History of tobacco use Current smoker [facility] Start: 10-04-2012 End: 01-06-2024 Tobacco use and exposure Smokeless tobacco non-user [facility] Start: 02-18-2018 End: 01-06-2024 Alcohol intake Current non-drinker of alcohol (finding) [facility] Start: 02-18-2018 End: 08-20-2023 History of Social function [facility] Start: 02-18-2018 End: 08-20-2023 Tobacco use panel [facility] National Score (1-10 0), lower number is lower risk 66 [facility] Start: 1975 Sex Assigned At Not on file C [facility] Clinical Notes 08-20-2023 to 05-30-2024 Telephone Encounter - Naomy Smith APRN.CNP - 01/06/2024 7:31 PM EDTTelephone Encounter - Naomy Smith APRN.CNP - 01/06/2024 7:31 PM Faye Diaz RT(R) - 01/06/2024 6:50 PM EDT Note Date & Type Note Facility 05-30-2024 Note HNO ID: [id number] Author: ARLETTE MARTINEZ APRN.STEPHANIE Service: ? Author Type: Nurse Practitioner Type: Progress Notes Filed: 06/07/2024 17:11 Note Text: Cancelled Arlette Martinez APRN.CNP [facility] 01-06-2024 Telephone encounter Note I have called the patient with the x-ray results. I will go ahead and treat her for a bacterial pneumonia today with doxycycline. I did discuss with the patient that the nodular density may be a bacterial infection however a repeat x-ray is indicated in 4 to 6 weeks to see if the nodular density has resolved. Patient has verbalized understanding of plan of care and is agreeable she will make a follow-up appointment with her family physician to have this scheduled [facility] 01-06-2024 Miscellaneous Notes I have called the patient with the x-ray results. I will go ahead and treat her for a bacterial pneumonia today with doxycycline. I did discuss with the patient that the nodular density may be a bacterial infection however a repeat x-ray is indicated in 4 to 6 weeks to see if the nodular density has resolved. Patient has verbalized understanding of plan of care and is agreeable she will make a follow-up appointment with her family physician to have this scheduled documented in this encounter [facility] 01-06-2024 History of Presen t illness Narrative Radiology Service Progress Note PATIENT NAME: Roselyn Lane DATE OF SERVICE: January 06, 2024 TIME: 6:58 PM PATIENT IDENTITY VERIFICATION COMPLETED USING TWO (2) IDENTIFIERS: Name and Date of confirmed by patient verbally. FALL SCREENING: Has the patient had 2 falls in the last year or 1 fall with injury or currently using an Ambulatory Assistive Device (Walker, Cane, Wheelchair, Crutches, etc.)? No PATIENT GENDER DATA: Female. status: : No status: NO. PATIENT RELEVANT IMPLANT DATA REVIEWED: Yes PATIENT PRESENTS WITH AN IMPLANTABLE OR ATTACHED VAULT MAKER: No RADIOLOGY DEPARTMENT: General X-ray: Exam(s) Completed: Chest X-Ray PERIPHERAL IV DATA: Not applicable SIGNED BY: RT Sawyer(R) January 06, 2024 6:58 PM documented in this encounter [facility] 01-06-2024 Note HNO ID: [id number] Author: FAYE AMBROSIO RT(R) Service: ? Author Type: Soa Integration Developer Type: Progress Notes Filed: 01/06/2024 19:08 Note Text: Radiology Service Progress Note PATIENT NAME: Roselyn Lane DATE OF SERVICE: January 06, 2024 TIME: 6:58 PM PATIENT IDENTITY VERIFICATION COMPLETED USING TWO (2) IDENTIFIERS: Name and Date of confirmed by patient verbally. FALL SCREENING: Has the patient had 2 falls in the last year or 1 fall with injury or currently using an Ambulatory Assistive Device (Walker, Cane, Wheelchair, Crutches, etc.)? No PATIENT GENDER DATA: Female. status: : No status: NO. PATIENT RELEVANT IMPLANT DATA REVIEWED: Yes PATIENT PRESENTS WITH AN IMPLANTABLE OR ATTACHED VAULT MAKER: No RADIOLOGY DEPARTMENT: General X-ray: Exam(s) Completed: Chest X-Ray PERIPHERAL IV DATA: Not applicable SIGNED BY: RT Sawyer(R) January 06, 2024 6:58 PM [facility] 01-06-2024 Note HNO ID: [id number] Author: KETTY FERNÁNDEZ APRN.FILTRATION SUPERVISOR Service: ? Author Type: Nurse Practitioner Type: Progress Notes Filed: 01/07/2024 08:34 Note Text: This note was created using NoteWriter. Subjective Roselyn Lane is a 48 year old female. HPI Today pt felt as though she was having some shortness of breath and wheezing. 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 Review of Systems Constitutional: Negative for fever. Respiratory: Positive for cough, shortness of breath and wheezing. Objective Temp 36.6 ?C (97.9 ?F) Resp 18 Wt 110.3 kg (243 lb 2.7 oz) LMP 12/05/2023 (Exact Date) BMI 35.91 kg/m? Physical Exam Vitals and nursing note reviewed. Constitutional: General: She is not in acute distress. Appearance: Normal appearance. She is not ill-appearing. HENT: Head: Normocephalic. Mouth/Throat: Mouth: Mucous membranes are moist. Eyes: Conjunctiva/sclera: Conjunctivae normal. Cardiovascular: Rate and Rhythm: Normal rate and regular rhythm. Pulmonary: Effort: Pulmonary effort is normal. Breath sounds: Normal breath sounds. Musculoskeletal: General: Normal range of motion. Cervical back: Normal range of motion. Skin: General: Skin is warm and dry. Neurological: General: No focal deficit present. Mental Status: She is alert. Psychiatric: Mood and Affect: Mood normal. Behavior: Behavior normal. Assessment and Plan ASSESSMENT/PLAN: 1. SOB (shortness of breath) - ICD9: 786.05, ICD10: R06.02 -We did discuss symptomatic prescriptions such as albuterol inhaler and/or steroids which patient declines. I discussed with her that as her symptoms are early in the progression and x-ray would probably not show anything even if she was developing pneumonia however patient would prefer to have an x-ray performed at this time. I informed patient that we will call her with results and she will be treated accordingly. If the chest x-ray is negative her symptoms are most likely viral in origin but if the chest x-ray is positive antibiotics will be prescribed. - XR CHEST 2V FRONTAL/LAT Ketty Fernández APRN.[facility] 01-06-2024 History of Presen t illness Narrative This note was created using Syncanoriter. Subjective Roselyn Lane is a 48 year old female. HPI Today pt felt as though she was having some shortness of breath and wheezing. 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 Review of Systems Constitutional: Negative for fever. Respiratory: Positive for cough, shortness of breath and wheezing. Objective Temp 36.6 C (97.9 F) Resp 18 Wt 110.3 kg (243 lb 2.7 oz) LMP 12/05/2023 (Exact Date) BMI 35.91 kg/m Physical Exam Vitals and nursing note reviewed. Constitutional: General: She is not in acute distress. Appearance: Normal appearance. She is not ill-appearing. HENT: Head: Normocephalic. Mouth/Throat: Mouth: Mucous membranes are moist. Eyes: Conjunctiva/sclera: Conjunctivae normal. Cardiovascular: Rate and Rhythm: Normal rate and regular rhythm. Pulmonary: Effort: Pulmonary effort is normal. Breath sounds: Normal breath sounds. Musculoskeletal: General: Normal range of motion. Cervical back: Normal range of motion. Skin: General: Skin is warm and dry. Neurological: General: No focal deficit present. Mental Status: She is alert. Psychiatric: Mood and Affect: Mood normal. Behavior: Behavior normal. Assessment and Plan ASSESSMENT/PLAN: 1. SOB (shortness of breath) - ICD9: 786.05, ICD10: R06.02 -We did discuss symptomatic prescriptions such as albuterol inhaler and/or steroids which patient declines. I discussed with her that as her symptoms are early in the progression and x-ray would probably not show anything even if she was developing pneumonia however patient would prefer to have an x-ray performed at this time. I informed patient that we will call her with results and she will be treated accordingly. If the chest x-ray is negative her symptoms are most likely viral in origin but if the chest x-ray is positive antibiotics will be prescribed. - XR CHEST 2V FRONTAL/LAT Ketty Fernández APRN.STEPHANIE documented in this encounter [facility] 12-17-2023 Note HNO ID: [id number] Author: NYLA CERVANTES MD Service: ? Author Type: Physician Type: Progress Notes Filed: 12/17/2023 12:44 Note Text: Talent Management Manager offered: Patient declines. Roselyn is a 48 year old who presents for an annual gynecologic exam with complaints, PMDD . Lasts for about 2 weeks around menses. Has been diagnosed in the past. Is on Zoloft but has not has mental health follow up in years. Does have an appointment scheduled in feb. Discussed alternates that may help with PMDD. Was inquiring about HRT, however she does not have any irregularities right now with her cycles. A better choice would be to change her mental health medications and then see functional health to hormone testing if there is no improvement. Had several years of intense dieting and exercise that caused significant weight loss. Is doing better but does struggle on a daily basis. This is also why she wants to get back into mental health providers. Would like to restart counseling. Menses: cycles every 30 days and 5 days of flow. Contraception: vasectomy HPV vaccine: N/A Last Pap: 02/10/2017 normal HPV: 02/08/2017 negative History of abnormal pap: No Last mammogram: yes, nor,al Sexually active: Yes Mood swings: Yes OB History T0 L1 SAB0 IAB0 Ectopic0 Multiple0 Live Births0 Comment: First delivered 24 weeks Field Gauger History LMP: 12/05/2023 (Exact Date), Having periods Age at Menarche: Age at First : Age at Menopause: Field Gauger History Comments: Sexual Activity: Yes; Male; had vasectomy 2011 Contraception: Vasectomy PAST MEDICAL HISTORY Diagnosis Date Depressive disorder, not elsewhere classified Esophageal reflux Generalized anxiety disorder Migraine without aura Morbid obesity (HCC) 2-25-10 stated BMI 45.7 Ht: 69 Wt: 310 lbs Other and unspecified hyperlipidemia Other chronic nonalcoholic liver disease Pain in joint, multiple sites Unspecified asthma(493.90) Unspecified essential hypertension PAST SURGICAL HISTORY Procedure Laterality Date NONE History reviewed. No pertinent family history.SOCIAL HISTORY Social History Tobacco Use Smoking status: Former Smokeless tobacco: Never Vaping Use Vaping status: Never Used Substance Use Topics Alcohol use: No Drug use: No REVIEW OF SYSTEMS Abdomen: No abdominal pain, nausea, vomiting, diarrhea, or constipation. No bloating, early satiety, indigestion, or increased flatulence. Bladder: No dysuria, gross hematuria, urinary frequency, urinary urgency, or incontinence. Breast: No breast lumps, nipple d/c, overlying skin changes, redness or skin retraction. Allergies and current medication updated:Yes SENSITIVE EXAM: The sensitive examination was discussed with the Patient or Patient's Authorized Science Technician. As applicable, any other physician, advance practice provider, medical student, or other health professional student that will be observing or involved in the sensitive examination for educational or training purposes was discussed with the Patient or Authorized Science Technician. The Patient or Authorized Science Technician has agreed to proceed with the sensitive examination. (Sensitive examination includes inspection and/or palpation of the breasts, pelvis, prostate and anorectal regions). EXAM: BP [declined bp being taken[ Ht 5' 9 (1.75m) Wt 242 lb (109.8kg) LMP 12/05/2023 BMI 35.72 kg/(m2). GENERAL: pleasant, female in no apparent distress HEENT: Normocephalic, atraumatic, mucus membranes moist, and no lesions NECK: Supple, full range of motion, no adenopathy, and thyroid normal DERMATOLOGY: Normal, without lesions, non-icteric, and non-hirsute BREAST: soft, non-tender, symmetric, no dominant mass, normal nipple-areolar complex, no lymphadenopathy, and no nipple discharge CHEST: Normal inspiratory effort ABDOMEN: soft, non-tender, and no masses PELVIC: external genitalia normal, normal Bartholin's glands, urethra, St. Gabriel's glands, no vulvar lesions, no cervical lesions, good vaginal support, physiologic discharge present, normal appearing perineal body and perianal region BIMANUAL: uterus normal size, shape and consistency, no adnexal masses, and non-tender RECTOVAGINAL: deferred. NEURO: alert and oriented x3,exam grossly non-focal EXTREMITIES: normal ASSESSMENT/PLAN: 1) Health maintenance: Pap done with HPV. Mammogram ordered. 2) Contraception: vasectomy. Contraceptive options reviewed and information provided. 3) STD screening: Declined STD check. 4) Follow up one year or sooner as needed Nyla Cervantes MD [facility] 12-17-2023 History of Presen t illness Narrative Talent Management Manager offered: Patient declines. Roselyn is a 48 year old who presents for an annual gynecologic exam with complaints, PMDD . Lasts for about 2 weeks around menses. Has been diagnosed in the past. Is on Zoloft but has not has mental health follow up in years. Does have an appointment scheduled in feb. Discussed alternates that may help with PMDD. Was inquiring about HRT, however she does not have any irregularities right now with her cycles. A better choice would be to change her mental health medications and then see functional health to hormone testing if there is no improvement. Had several years of intense dieting and exercise that caused significant weight loss. Is doing better but does struggle on a daily basis. This is also why she wants to get back into mental health providers. Would like to restart counseling. Menses: cycles every 30 days and 5 days of flow. Contraception: vasectomy HPV vaccine: N/A Last Pap: 02/10/2017 normal HPV: 02/08/2017 negative History of abnormal pap: No Last mammogram: yes, nor,al Sexually active: Yes Mood swings: Yes OB History T0 L1 SAB0 IAB0 Ectopic0 Multiple0 Live Births0 Comment: First delivered 24 weeks Field Gauger History LMP: 12/05/2023 (Exact Date), Having periods Age at Menarche: Age at First : Age at Menopause: Field Gauger History Comments: Sexual Activity: Yes; Male; had vasectomy 2011 Contraception: Vasectomy PAST MEDICAL HISTORY Diagnosis Date Depressive disorder, not elsewhere classified Esophageal reflux Generalized anxiety disorder Migraine without aura Morbid obesity (HCC) 2-25-10 stated BMI 45.7 Ht: 69 Wt: 310 lbs Other and unspecified hyperlipidemia Other chronic nonalcoholic liver disease Pain in joint, multiple sites Unspecified asthma(493.90) Unspecified essential hypertension PAST SURGICAL HISTORY Procedure Laterality Date NONE History reviewed. No pertinent family history.SOCIAL HISTORY Social History Tobacco Use Smoking status: Former Smokeless tobacco: Never Vaping Use Vaping status: Never Used Substance Use Topics Alcohol use: No Drug use: No REVIEW OF SYSTEMS Abdomen: No abdominal pain, nausea, vomiting, diarrhea, or constipation. No bloating, early satiety, indigestion, or increased flatulence. Bladder: No dysuria, gross hematuria, urinary frequency, urinary urgency, or incontinence. Breast: No breast lumps, nipple d/c, overlying skin changes, redness or skin retraction. Allergies and current medication updated:Yes SENSITIVE EXAM: The sensitive examination was discussed with the Patient or Patient's Authorized Science Technician. As applicable, any other physician, advance practice provider, medical student, or other health professional student that will be observing or involved in the sensitive examination for educational or training purposes was discussed with the Patient or Authorized Science Technician. The Patient or Authorized Science Technician has agreed to proceed with the sensitive examination. (Sensitive examination includes inspection and/or palpation of the breasts, pelvis, prostate and anorectal regions). EXAM: BP [declined bp being taken[ Ht 5' 9 (1.75m) Wt 242 lb (109.8kg) LMP 12/05/2023 BMI 35.72 kg/(m^2). GENERAL: pleasant, female in no apparent distress HEENT: Normocephalic, atraumatic, mucus membranes moist, and no lesions NECK: Supple, full range of motion, no adenopathy, and thyroid normal DERMATOLOGY: Normal, without lesions, non-icteric, and non-hirsute BREAST: soft, non-tender, symmetric, no dominant mass, normal nipple-areolar complex, no lymphadenopathy, and no nipple discharge CHEST: Normal inspiratory effort ABDOMEN: soft, non-tender, and no masses PELVIC: external genitalia normal, normal Bartholin's glands, urethra, St. Gabriel's glands, no vulvar lesions, no cervical lesions, good vaginal support, physiologic discharge present, normal appearing perineal body and perianal region BIMANUAL: uterus normal size, shape and consistency, no adnexal masses, and non-tender RECTOVAGINAL: deferred. NEURO: alert and oriented x3,exam grossly non-focal EXTREMITIES: normal ASSESSMENT/PLAN: 1) Health maintenance: Pap done with HPV. Mammogram ordered. 2) Contraception: vasectomy. Contraceptive options reviewed and information provided. 3) STD screening: Declined STD check. 4) Follow up one year or sooner as needed Nyla Cervantes MD documented in this encounter [facility] 09-06-2023 Note HNO ID: [id number] Author: CLAUDETTE CHASE PA-C Service: ? Author Type: Physician Yarn Finisher Type: Progress Notes Filed: 09/06/2023 09:16 Note Text: Claudette Chase PA-C Department of Orthopaedics Orthopaedics [address] [facility] [address] Dept: [phone] Dept September 06, 2023 CHIEF COMPLAINT: Established Patient and Follow Up of the Right Knee. ASSESSMENT: S83.241A Acute medial meniscus tear of right knee, initial encounter (primary encounter diagnosis) M25.561, G89.29 Chronic pain of right knee M25.561, M25.461 Pain and swelling of knee, right SUMMARY/PLAN: Patient presents for a right knee corticosteroid injection. She had an MRI in outside facility, she has a meniscal tear but also some arthritis in the knee. She has never had a corticosteroid injection. We discussed that it may take 3 to 5 days for the injection to take effect. Injection is certainly repeatable if she finds to be beneficial. If no improvement with the injection then we can further discuss potential knee arthroscopy with meniscectomy. Large Joint Arthro/Inj: R knee joint Informed Consent Consent Obtained: Verbal [place] Protocol A moment to CARE was completed. SIGN IN Sign in communication not applicable due to emergent procedure. Personnel directly involved with the procedure wore the appropriate PPE. Special Equipment: N/A Patient/Surrogate Stated/Verified: Patient name, Date of , Relevant allergies and Intended procedure TIME OUT Intended patient and procedure match the source document(s). Consent documented and matches the intended procedure. Relevant labs, photos, and/or imaging studies have been reviewed. Correct side/site marked and visible. Medications required for procedure verified. No fire risk assessment and interventions applicable. No implant(s) inserted. 09/06/2023 9:16 AM The procedure site was prepped in the usual sterile fashion. Site: R knee joint Medications: 6 mg betamethasone acetate-betamethasone sodium phosphate 6 mg/mL Anesthetics: 5 mL lidocaine (PF) 10 mg/mL (1 %) Outcome: Tolerated well, no immediate complications Post-injection instructions were reviewed with the patient and the patient voiced understanding of these instructions. SIGN OUT All instruments, equipment, possible retained foreign bodies accounted for. Ms. Roselyn Lane was advised as to contrast therapies and/or to take analgesics/anti-inflammatories as needed and all contraindications were reviewed. Supporting Information Below: Medications: Current Outpatient Medications Medication Sig cloNIDine HCl (CATAPRES) 0.2 mg tablet Take 0.2 mg by mouth two times a day. metoprolol tartrate, short acting, (LOPRESSOR) 100 mg tablet Take 100 mg by mouth two times a day. Cholecalciferol, Vitamin D3, 2,000 unit cap VITAMIN D3 2000 UNIT CAPS sertraline (ZOLOFT) 100 mg tablet OXcarbazepine (TRILEPTAL) 150 mg tablet Take 1 tablet by mouth twice daily. acyclovir (ZOVIRAX) 800 mg tablet Take 0.5 tablets by mouth as directed. 400 mg po qid x 5 days prn outbreaks No current facility-administered medications for this visit. Allergies: Codeine and Zoloft [Sertraline Hcl] This note was partially generated using Kaboodle voice recognition system, and there may be some incorrect words, spellings, and punctuation that were not noted in checking the note before saving. Claudette Chase PA-C [facility] 09-06-2023 History of Presen t illness Narrative Associated Order(s): Large Joint Arthro/Inj: R knee joint Post-Procedure Diagnose(s): Acute medial meniscus tear of right knee, initial encounter; Chronic pain of right knee; Pain and swelling of knee, right Claudette Chase PA-C Department of Orthopaedics [facility] [address] [address] Dept: [phone] Dept September 06, 2023 CHIEF COMPLAINT: Established Patient and Follow Up of the Right Knee. ASSESSMENT: S83.241A Acute medial meniscus tear of right knee, initial encounter (primary encounter diagnosis) M25.561, G89.29 Chronic pain of right knee M25.561, M25.461 Pain and swelling of knee, right SUMMARY/PLAN: Patient presents for a right knee corticosteroid injection. She had an MRI in outside facility, she has a meniscal tear but also some arthritis in the knee. She has never had a corticosteroid injection. We discussed that it may take 3 to 5 days for the injection to take effect. Injection is certainly repeatable if she finds to be beneficial. If no improvement with the injection then we can further discuss potential knee arthroscopy with meniscectomy. Large Joint Arthro/Inj: R knee joint Informed Consent Consent Obtained: Verbal [place] Protocol A moment to CARE was completed. SIGN IN Sign in communication not applicable due to emergent procedure. Personnel directly involved with the procedure wore the appropriate PPE. Special Equipment: N/A Patient/Surrogate Stated/Verified: Patient name, Date of , Relevant allergies and Intended procedure TIME OUT Intended patient and procedure match the source document(s). Consent documented and matches the intended procedure. Relevant labs, photos, and/or imaging studies have been reviewed. Correct side/site marked and visible. Medications required for procedure verified. No fire risk assessment and interventions applicable. No implant(s) inserted. 09/06/2023 9:16 AM The procedure site was prepped in the usual sterile fashion. Site: R knee joint Medications: 6 mg betamethasone acetate-betamethasone sodium phosphate 6 mg/mL Anesthetics: 5 mL lidocaine (PF) 10 mg/mL (1 %) Outcome: Tolerated well, no immediate complications Post-injection instructions were reviewed with the patient and the patient voiced understanding of these instructions. SIGN OUT All instruments, equipment, possible retained foreign bodies accounted for. Ms. Roselyn Lane was advised as to contrast therapies and/or to take analgesics/anti-inflammatories as needed and all contraindications were reviewed. Supporting Information Below: Medications: Current Outpatient Medications Medication Sig cloNIDine HCl (CATAPRES) 0.2 mg tablet Take 0.2 mg by mouth two times a day. metoprolol tartrate, short acting, (LOPRESSOR) 100 mg tablet Take 100 mg by mouth two times a day. Cholecalciferol, Vitamin D3, 2,000 unit cap VITAMIN D3 2000 UNIT CAPS sertraline (ZOLOFT) 100 mg tablet OXcarbazepine (TRILEPTAL) 150 mg tablet Take 1 tablet by mouth twice daily. acyclovir (ZOVIRAX) 800 mg tablet Take 0.5 tablets by mouth as directed. 400 mg po qid x 5 days prn outbreaks No current facility-administered medications for this visit. Allergies: Codeine and Zoloft [Sertraline Hcl] This note was partially generated using Kaboodle voice recognition system, and there may be some incorrect words, spellings, and punctuation that were not noted in checking the note before saving. Claudette Chase PA-C AMB ROOMING INTAKE FLOWSHEET DATA Pain Pain Level: 2 Pain Location: Knee-Right Description: Dull Duration Amount of Time: (ongoing) Frequency: Intermittent Intervention/Comfort measure: Other: See comment (none) Patient here today for 2 weeks 3 days post visit right knee meniscus tear. She would like an injection. documented in this encounter [facility] 09-06-2023 Note HNO ID: [id number] Author: ARLETTE DURAN MA Service: ? Author Type: Safety Admin Assistant Type: Progress Notes Filed: 09/06/2023 09:16 Note Text: AMB ROOMING INTAKE FLOWSHEET DATA Pain Pain Level: 2 Pain Location: Knee-Right Description: Dull Duration Amount of Time: (ongoing) Frequency: Intermittent Intervention/Comfort measure: Other: See comment (none) Patient here today for 2 weeks 3 days post visit right knee meniscus tear. She would like an injection. [facility] 08-31-2023 Telephone encounter Note Patient has been contacted and scheduled. [facility] 08-31-2023 Miscellaneous Notes Patient has been contacted and scheduled. Spoke with patient over the phone. We were not able to review her MRI at her office visit as our computer system was down. I did review her MRI with her over the phone. She certainly has a meniscal tear but she also has some osteoarthritis of the knee. She is interested in a follow-up appointment so that we can try a corticosteroid injection. Patient would like to be seen next week Wednesday in [place] for an injection, can we contact her and assist her with scheduling? documented in this encounter [facility] 08-30-2023 Telephone encounter Note Spoke with patient over the phone. We were not able to review her MRI at her office visit as our computer system was down. I did review her MRI with her over the phone. She certainly has a meniscal tear but she also has some osteoarthritis of the knee. She is interested in a follow-up appointment so that we can try a corticosteroid injection. Patient would like to be seen next week Wednesday in [place] for an injection, can we contact her and assist her with scheduling? [facility] Work Phone: 08-20-2023 Note HNO ID: [id number] Author: CLAUDETTE CHASE PA-C Service: ? Author Type: Physician Yarn Finisher Type: Progress Notes Filed: 08/30/2023 16:03 Note Text: Claudette Chase PA-C Department of Orthopaedics Orth[facility] [address] [address] Dept: [phone] Dept August 20, 2023 CHIEF COMPLAINT: New and Knee Pain of the Right Knee Ms. Roselyn Lane is a 48 year old female who presents with pain in her right knee which has been bothering her off and on for about the past 5 years. Patient reports that she was struggling with anorexia 5 years ago and was over exercising on a daily basis. She reports she was doing a Cross[employer], biking or running she estimates that she was working out for at least 5 to 8 hours/day. She was having some discomfort in the right knee but kept pushing through. About 2 years ago the pain became more intense. She continued to run several miles a day and was only applying compression to the knee. She has since cut back on exercising. She is recovering from her anorexia. She complains of swelling along the superior lateral aspect of the knee as well as discomfort medially with certain activities such as pivoting or deep knee bends. She was seen at [place] [facility] and had a right knee MRI about 5 weeks ago, she reports that she has a posterior medial meniscus tear. Unfortunately our computer not working today and I cannot review her images. She is not taking any type of an oral anti-inflammatory, she did try some oral prednisone but it gave her headache. She has not had a corticosteroid injection in the past. ASSESSMENT: S83.241A Acute medial meniscus tear of right knee, initial encounter (primary encounter diagnosis) M25.561, G89.29 Chronic pain of right knee M25.561, M25.461 Pain and swelling of knee, right PLAN: Unfortunately our computer system was not at the morning at the time of the patient's visit. I did contact her via telephone and we discussed her MRI results. She certainly has a meniscal tear but also has some osteoarthritis of the knee. I think it would be reasonable for her to schedule a follow-up appointment so that we can try a corticosteroid injection. Certainly if pain persist we can entertain a knee arthroscopy for the meniscal tear. Patient agrees to plan. Ms. Roselyn Lane was advised as to contrast therapies and/or to take analgesics/anti-inflammatories as needed and all contraindications were reviewed. OBJECTIVE: Ms. Roselyn Lane is a pleasant 48 year old in no apparent distress. Gen:LMP 08/15/2016 nl development, obese, no deformities ENT: Normocephalic, normal hearing, moist mucosa CV: Pulses:DP/PT= 2+ and symmetric, capillary refill < 2 secs, no peripheral edema/varicosities Skin: no rash, bruising or lesions. Good turgor. Psych: cooperative and appropriate, alert and oriented x 3, good mood and affect. Musculoskeletal: KNEE EXAM: Right: Alignment: Varus deformity, Partially Correctable Range of motion is lacking a few degrees secondary to tight hamstrings degrees in extension and 100 degrees of flexion. Extension La degrees Pain with ROM: Yes Effusion: Mild Tender to the palpation of Patellar tendon, Posterior Knee, Medial femoral condyle, and Medial joint line Pain with patellar compression: No Stability: Anterior/Posterior stable and Varus/Valgus stable Hip Exam: flexion to 100+ degrees, full extension, internal/external rotation adequate, and no pain with log roll Neurovascular Status: Sensation Intact, Moves foot and ankle up AND down, and 2+ dorsalis pedis Imaging: See Epic Supporting Subjective Information Below: Past Surgical History: PAST SURGICAL HISTORY Procedure Laterality Date NONE Medications: Current Outpatient Medications Medication Sig acyclovir (ZOVIRAX) 800 mg tablet Take 0.5 tablets by mouth as directed. 400 mg po qid x 5 days prn outbreaks Cholecalciferol, Vitamin D3, 2,000 unit cap VITAMIN D3 2000 UNIT CAPS sertraline (ZOLOFT) 100 mg tablet OXcarbazepine (TRILEPTAL) 150 mg tablet Take 1 tablet by mouth twice daily. No current facility-administered medications for this visit. Allergies: Codeine and Zoloft [Sertraline Hcl] ROS: General (negative for fatigue, malaise, weight loss/gain) HEENT (negative for headache, earache, recent vision changes, sinus pain, sore throat) Respiratory (no recent shortness of breath, hemoptysis) CV (negative for chest tightness, palpitations) Musculoskeletal (see HPI) Psych (no depression, anxiety) This note was partially generated using Kaboodle voice recognition system, and there may be some incorrect words, spellings, and punctuation that were not noted in checking the note before saving. Claudette Chase PA-C [facility] 08-20-2023 History of Presen t illness Narrative Claudette Chase PA-C Department of Orthopaedics Orthopa[facility] [address] [address] Dept: [phone] Dept August 20, 2023 CHIEF COMPLAINT: New and Knee Pain of the Right Knee Ms. Roselyn Lnae is a 48 year old female who presents with pain in her right knee which has been bothering her off and on for about the past 5 years. Patient reports that she was struggling with anorexia 5 years ago and was over exercising on a daily basis. She reports she was doing a CrossFit, biking or running she estimates that she was working out for at least 5 to 8 hours/day. She was having some discomfort in the right knee but kept pushing through. About 2 years ago the pain became more intense. She continued to run several miles a day and was only applying compression to the knee. She has since cut back on exercising. She is recovering from her anorexia. She complains of swelling along the superior lateral aspect of the knee as well as discomfort medially with certain activities such as pivoting or deep knee bends. She was seen at [place] [facility] and had a right knee MRI about 5 weeks ago, she reports that she has a posterior medial meniscus tear. Unfortunately our computer not working today and I cannot review her images. She is not taking any type of an oral anti-inflammatory, she did try some oral prednisone but it gave her headache. She has not had a corticosteroid injection in the past. ASSESSMENT: S83.241A Acute medial meniscus tear of right knee, initial encounter (primary encounter diagnosis) M25.561, G89.29 Chronic pain of right knee M25.561, M25.461 Pain and swelling of knee, right PLAN: Unfortunately our computer system was not at the morning at the time of the patient's visit. I did contact her via telephone and we discussed her MRI results. She certainly has a meniscal tear but also has some osteoarthritis of the knee. I think it would be reasonable for her to schedule a follow-up appointment so that we can try a corticosteroid injection. Certainly if pain persist we can entertain a knee arthroscopy for the meniscal tear. Patient agrees to plan. Ms. Roselyn Lane was advised as to contrast therapies and/or to take analgesics/anti-inflammatories as needed and all contraindications were reviewed. OBJECTIVE: Ms. Roselyn Lane is a pleasant 48 year old in no apparent distress. Gen:LMP 08/15/2016 nl development, obese, no deformities ENT: Normocephalic, normal hearing, moist mucosa CV: Pulses:DP/PT= 2+ and symmetric, capillary refill < 2 secs, no peripheral edema/varicosities Skin: no rash, bruising or lesions. Good turgor. Psych: cooperative and appropriate, alert and oriented x 3, good mood and affect. Musculoskeletal: KNEE EXAM: Right: Alignment: Varus deformity, Partially Correctable Range of motion is lacking a few degrees secondary to tight hamstrings degrees in extension and 100 degrees of flexion. Extension La degrees Pain with ROM: Yes Effusion: Mild Tender to the palpation of Patellar tendon, Posterior Knee, Medial femoral condyle, and Medial joint line Pain with patellar compression: No Stability: Anterior/Posterior stable and Varus/Valgus stable Hip Exam: flexion to 100+ degrees, full extension, internal/external rotation adequate, and no pain with log roll Neurovascular Status: Sensation Intact, Moves foot and ankle up & down, and 2+ dorsalis pedis Imaging: See Epic Supporting Subjective Information Below: Past Surgical History: PAST SURGICAL HISTORY Procedure Laterality Date NONE Medications: Current Outpatient Medications Medication Sig acyclovir (ZOVIRAX) 800 mg tablet Take 0.5 tablets by mouth as directed. 400 mg po qid x 5 days prn outbreaks Cholecalciferol, Vitamin D3, 2,000 unit cap VITAMIN D3 2000 UNIT CAPS sertraline (ZOLOFT) 100 mg tablet OXcarbazepine (TRILEPTAL) 150 mg tablet Take 1 tablet by mouth twice daily. No current facility-administered medications for this visit. Allergies: Codeine and Zoloft [Sertraline Hcl] ROS: General (negative for fatigue, malaise, weight loss/gain) HEENT (negative for headache, earache, recent vision changes, sinus pain, sore throat) Respiratory (no recent shortness of breath, hemoptysis) CV (negative for chest tightness, palpitations) Musculoskeletal (see HPI) Psych (no depression, anxiety) This note was partially generated using Kaboodle voice recognition system, and there may be some incorrect words, spellings, and punctuation that were not noted in checking the note before saving. Claudette Chase PA-C documented in this encounter [facility] Evaluation note Diagnosis Acute medial meniscus tear of right knee, initial encounter- Primary Chronic pain of right knee Pain and swelling of knee, right [facility] Diagnosis Acute medial meniscus tear of right knee, initial encounter- Primary Chronic pain of right knee Pain and swelling of knee, right [facility] Diagnosis Encounter for gynecological examination (general) (routine) without abnormal findings- Primary Screening for cervical cancer Screening for malignant neoplasm of the cervix Encounter for screening for human papillomavirus (HPV) Special screening examination for human papillomavirus (HPV) Encounter for screening mammogram for breast cancer [facility] Diagnosis Bacterial pneumonia- Primary Bacterial pneumonia, unspecified Nodular radiologic density Other nonspecific (abnormal) findings on radiological and other examinations of body structure [facility] Diagnosis SOB (shortness of breath) Shortness of breath [facility] Diagnosis SOB (shortness of breath)- Primary Shortness of breath SOB (shortness of breath) Shortness of breath [facility] Diagnostic Procedure Only (Routine) - New Request Specialty Diagnoses / Procedures Referred By Contac t Referred To Contact [facility] Diagnoses Encounter for screening mammogram for breast cancer Procedures LINSEY SCREENING W JORDIN SCREENING DIGITAL BREAST TOMOSYNTHESIS BI SCREENING MAMMOGRAPHY BI 2-VIEW BREAST INC CAD Nyla Cervantes MD [address] [place] [address] [facility] [address] [facility] [address] Referral ID Status Reason Start Date Expiration Date Visits Requested Visits Authorized [id number] New Request Auto-Generat ed Referral 12/17/2023 01/15/2025 1 1 [facility] Summary Purpose Family History No Family History Records FoundNo Family History Records FoundNo Family History Records Found Advance Directives No Advanced Directives Records FoundNo Advanced Directives Records FoundNo Advanced Directives Records Found Additional Source Comments INFORMATION SOURCE (unrecogn ized section and content) DATE CREATED AUTHOR 09/03/2017 [facility] DATE CREATED AUTHOR AUTHOR'S ORGANIZ ATION 06/09/2024 [facility] DATE CREATED AUTHOR AUTHOR'S ORGANIZ ATION 07/02/2024 [facility] Source Comments (unrecognize d section and content) In the event this informatio n is protected by the Federal Confidentiality of Alcohol and Drug Abuse Patient Records regulations: The Federal rules restrict any use of the information to criminally investigate or prosecute any alcohol or drug abuse patient.[facility] the event this information is protected by the Federal Confidentiality of Alcohol and Drug Abuse Patient Records regulations: The Federal rules restrict any use of the information to criminally investigate or prosecute any alcohol or drug abuse patient.[facility] the event this information is protected by the Federal Confidentiality of Alcohol and Drug Abuse Patient Records regulations: The Federal rules restrict any use of the information to criminally investigate or prosecute any alcohol or drug abuse patient.[facility] the event this information is protected by the Federal Confidentiality of Alcohol and Drug Abuse Patient Records regulations: The Federal rules restrict any use of the information to criminally investigate or prosecute any alcohol or drug abuse patient.[facility] the event this information is protected by the Federal Confidentiality of Alcohol and Drug Abuse Patient Records regulations: The Federal rules restrict any use of the information to criminally investigate or prosecute any alcohol or drug abuse patient.[facility] the event this information is protected by the Federal Confidentiality of Alcohol and Drug Abuse Patient Records regulations: The Federal rules restrict any use of the information to criminally investigate or prosecute any alcohol or drug abuse patient.[facility] Hospital[facility] the event this information is protected by the Federal Confidentiality of Alcohol and Drug Abuse Patient Records regulations: The Federal rules restrict any use of the information to criminally investigate or prosecute any alcohol or drug abuse patient.[facility] Reason for Visit (unrecogniz ed section and content) Reason Comments New Knee Pain Reason Comments Established Patient Follow Up Reason Comments Yearly Exam Reason Comments Results Reason Comments Cough Chest congestion, SO B x today, pneumonia exposure Care Teams (unrecognized sec tion and content) Outreach Liaison Relationship Specialty Start Date End Date NabilKen kingstonDO [address] [place] [address] PCP - General Family Medicine 01/03/18 Outreach Liaison Relationship Specialty Start Date End Date NabilKen kingstonDO [address] [place] [address] PCP - General Family Medicine 01/03/18 Outreach Liaison Relationship Specialty Start Date End Date Ken AdlerDO [address] [place] [address] PCP - General Family Medicine 01/03/18 Outreach Liaison Relationship Specialty Start Date End Date NabilKen kingstonDO [address] [place] [address] PCP - General Family Medicine 01/03/18 Outreach Liaison Relationship Specialty Start Date End Date NabilKen kingstonDO [address] [place] [address] PCP - General Family Medicine 01/03/18 Outreach Liaison Relationship Specialty Start Date End Date Ken Adler DO [address] [place] [address] PCP - General Family Medicine 01/03/18 Outreach Liaison Relationship Specialty Start Date End Date Ken Adler DO [address] [address] PCP - General Family Medicine 01/03/18 FOR RECORDS PERTAINING TO PATIENTS WHO ARE OR HAVE BEEN ENROLLED IN A CHEMICAL DEPENDENCY/SUBSTANCEABUSE PROGRAM, SOME INFORMATION MAY BE OMITTED. This clinical summary was aggregated from multiple sources. Caution should be exercised in using it in the provision of clinical care. This summary normalizes information from multiple sources, and as a consequence, information in this document may materially change the coding, format and clinical context of patient data. In addition, data may be omitted in some cases. CLINICAL DECISIONS SHOULD BE BASED ON THE PRIMARY CLINICAL RECORDS. [facility]. provides no warranty or guarantee of the accuracy or completeness of information in this document.
[2024-08-17 11:37] LABS: Absolute Lymphocyte Count 1.52 X10^3/uL (0.83-4.51); Absolute Neutrophil Count 2.8 X10^3/uL (2.0-7.7); Basophil# 0.05 X10^3/uL; Eosinophil# 0.14 X10^3/uL; Eosinophils% 2.8 % (0-5); Hematocrit 38.3 % (37-47); Hemoglobin 13.3 g/dL (12.0-15.0); Lymphocyte # 1.52 X10^3/ul (0.83-4.51); Lymphocyte % 30.1 % (19-41); Mean Corp Hgb Conc 34.7 g/dL (32-36); Mean Corpuscular Hgb 32.1 pg (27.0-32.0); Mean Corpuscular Volume 92.5 fL (81-99); Mean Platelet Vol. 9.6 fl (6.2-12.0); Monocyte# 0.57 X10^3/uL; Monocyte% 11.3 % (0-10); NRBC Flagged by Analyzer 0 % (0-5); Neutrophil # 2.75 X10^3/uL (2.7-7.7); Neutrophil % 54.4 % (47-70); Platelet Count 173 K/mm3 (150-450); RBC Distribution Width CV 11.3 % (11.6-14.6); RBC Distribution Width SD 38.4 fl (35.1-43.9); Red Blood Count 4.14 M/mm3 (4.2-5.4); White Blood Count 5.1 K/mm3 (4.4-11.0)
[2024-08-17 12:24] LABS: ALB/GLOB Ratio 1.5 RATIO (0.9-2.4); AST(SGOT) 24 U/L (<=31); Alanine Aminotransfer ALT/SGPT 19 U/L (<=34); Albumin, Serum 4.1 g/dL (3.5-5.0); Alkaline Phosphatase 44 U/L (35-104); Anion Gap 12 (5-15); BUN 12 mg/dL (4-19); Calcium,Total 8.4 mg/dL (7.6-11.0); Carbon Dioxide 23.3 mmol/L (21.0-32.0); Chloride 104 mmol/L (98-108); Cholesterol 187 mg/dL (<=200); Creatinine, Serum 0.88 mg/dL (0.70-1.20); EST Glomerular Filtration Rate 81 (>60); Globulin 2.8 g/dL (2.2-4.2); Glucose 94 mg/dL (70-99); High Density Lipoprotein 38 mg/dL; Low Density Lipoprotein Calc. 129 mg/dL; Potassium 4.3 mmol/L (3.3-5.1); Protein, Total 6.9 g/dL (5.9-8.4); Sodium Level 139 mmol/L (133-145); Total Bilirubin 0.58 mg/dL (0.00-1.30); Triglycerides 99 mg/dL; Very Low Density Lipoprotein 20 mg/dL (5-40)
== END | disposition home or self-care (01) ==
LOC: LAB 09:54
PROVIDERS: PCP Family Medicine; Referring Provider Family Medicine; Visit Provider Family Medicine
DX: Z00.00 Encounter for general adult medical examination without abnormal findings (principal)
CPT/HCPCS: 36415; 80053; 80061; 84443; 85025

== ENCOUNTER 2024-09-13 10:59 | Day surgery (SDC) | payer OTHER, SELFPAY ==
--- NOTE | 2024-08-25 11:52 | PAT.ANESEVAL ---
Pre-Assessment Diagnosis/Proposed Procedure Planned Operative Procedure(s): EXCISION RIGHT NECK MELANOMA IN SITU Anesthesia History Anesthesia History - special educator: Anesthesia History - special educator Hx Hospitalization No 08/25/24 09:21 Any Problems With Anesthesia No 08/25/24 09:21 Cholinesterase deficiency No 08/25/24 09:21 You/Your Family Experience No 08/25/24 09:21 fever (hyperthermia) with Relationship Recent Exposure to Contagious Disease Does patient have nerve No 08/25/24 09:21 stimulator Patient instructed to have device shut off --Does patient have Pacemaker or ICD? When Was Last Pacemaker Check QUESTION #4 FULL TEXT: You/Your Family Experience fever (hyperthermia) with Anesthesia Last Oral Intake Last Oral intake: Last Oral Intake NPO since Meds taken in AM with sips of water? Meds patient instructed to take am of surgery PONV PONV - special educator: PONV - special educator Female Yes 08/25/24 09:21 HX of Motion Sickness No 08/25/24 09:21 HX of N/V After Surgery No 08/25/24 09:21 Non-Smoker Yes 08/25/24 09:21 Duration of Surgery greater Yes 08/25/24 09:21 than 60 minutes Number of Risk Factors 3 08/25/24 09:21 PONV Score Moderate Risk 08/25/24 09:21 Height & Weight Height & Weight: Anesthesia: Height & Weight Height 5 ft 9 in 08/21/24 16:10 Respiratory Assessment Respiratory Assessment - special educator: Respiratory Tract Infection Hx - special educator Hx Respiratory Tract Infection No 08/25/24 09:21 STOP Sleep Apnea STOP Sleep Apnea - special educator: STOP Sleep Apnea - special educator Hx Hypertension Yes: ON MEDS BUT STILL RUNS 08/25/24 09:21 HIGH PER PATIENT Hx Sleep Apnea No 08/25/24 09:21 CPAP BIPAP Do you snore loudly (louder Yes 08/25/24 09:21 than talking or can be heard Do you often feel tired/ No 08/25/24 09:21 fatigued/ sleepy during daytime? Has anyone observed you stop No 08/25/24 09:21 breathing during sleep? STOP Results Positive 08/25/24 09:21 QUESTION #5 FULL TEXT : Do you snore loudly (louder than talking or can be heard through closed doors)? 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 Specify any problems Hx of Preganancy in last 3 No 08/25/24 09:21 Months Nurse Filling Out Transfusion DSCHRIBER 08/25/24 09:21 & Questions: Date: 08/25/24 08/25/24 09:21 Time: 09:23 08/25/24 09:21 Patient unable to answer at this time (ie. confused, unrespo /Reproduction History /Reproductive History - special educator: /Reproductive Hx- special educator Hx Now No 08/25/24 09:21 Gestational Age (in weeks): EDC: Hx Hx Para Hx Section SAB No 08/25/24 09:21 [facility] Medical History (Updated 08/25/24 @ 09:26 by Audrey Smart) Cancer Restless legs Non-smoker History of echocardiogram History of anorexia nervosa PTSD (post-traumatic stress disorder) delivery delivered Bulimia nervosa, extreme Hypertension Depression Home Medications ?Medication ?Instructions ?Recorded ?Last Taken ?Type clonidine HCl 0.2 mg tablet 0.2 mg PO TID BP 03/13/24 Unknown History metoprolol tartrate 100 mg tablet 100 mg PO BID 03/13/24 Unknown History oxcarbazepine 300 mg tablet 300 mg PO DAILY 03/13/24 Unknown History sertraline 100 mg tablet 200 mg PO DAILY 03/13/24 Unknown History ascorbic acid (vitamin C) 1,000 mg 1 g PO DAILY 08/25/24 Unknown History tablet (C-1000) multivitamin (Daily Multi-Vitamin 1 tab PO DAILY 08/25/24 Unknown History tablet) Allergy/AdvReac Type Severity Reaction Status Date / Time No Known Allergies Allergy Verified 06/13/25 09:17 Family History Other Anxiety Asthma Depression Heart disease Hypertension Seizure activity as manifestation of blood transfusion reaction Thyroid disorder Social History Smoking Status: Never smoker alcohol intake: never substance use type: does not use what type of physical activity do you participate in: walking, running, aerobics and weight training frequency: daily duration: > 90 minutes/day Audit: Pertinent Findings Pertinent Findings EKG Perinent findings: 12/17/2017. Sinus bradycardia 59 bpm. Echo (EF%) pertinent findings: 06/22/2017. EF 55%. Normal size and function. Recommendation Anesthesia Recommendation Anesthesia recommendation: OPTIMIZED for anesthesia
--- NOTE | 2024-08-29 07:52 | PCM.HP.STD ---
HPI - General HPI Narrative Kristin Lane is a delightful 49-year-old female with past medical history of severe and life-threatening anorexia nervosa as well as alcohol use disorder (sober for 6 weeks) who presents as a referral for right neck melanoma in situ, superficial spreading subtype, referred to us by [facility]. The right neck lesion was biopsied at Dr. Vic Villanueva's practice on 11 Aug 2024 with a shave biopsy. The melanoma in situ extended to all specimen margins. No headaches Patient is not a smoker. She does not have a personal or family history of bleeding or clotting problems. No personal history of problems with anesthesia. Current Encounter (DATE OF SURGERY H&P UPDATE): I saw and examined the patient this morning in pre-operative holding. Her blood pressure was 180/120 PFSH Medical History Cancer Restless legs Non-smoker History of echocardiogram History of anorexia nervosa PTSD (post-traumatic stress disorder) delivery delivered Bulimia nervosa, extreme Hypertension Depression Home Medications ?Medication ?Instructions ?Recorded ?Last Taken ?Type clonidine HCl 0.2 mg tablet 0.2 mg PO TID BP 03/13/24 08/29/24 07:30 History metoprolol tartrate 100 mg tablet 100 mg PO BID 03/13/24 08/29/24 07:30 History oxcarbazepine 300 mg tablet 300 mg PO DAILY 03/13/24 Unknown History sertraline 100 mg tablet 200 mg PO DAILY 03/13/24 Unknown History ascorbic acid (vitamin C) 1,000 mg 1 g PO DAILY 08/25/24 Unknown History tablet (C-1000) multivitamin (Daily Multi-Vitamin 1 tab PO DAILY 08/25/24 Unknown History tablet) oxycodone 5 mg tablet 5 mg PO Q12H PRN pain 5 days #10 08/29/24 Unknown Rx tabs Allergy/AdvReac Type Severity Reaction Status Date / Time ketorolac (From Toradol) AdvReac Unknown Other Verified 08/29/24 09:09 Family History Other Anxiety Asthma Depression Heart disease Hypertension Seizure activity as manifestation of blood transfusion reaction Thyroid disorder Social History Smoking Status: Never smoker alcohol intake: never substance use type: does not use what type of physical activity do you participate in: walking, running, aerobics and weight training frequency: daily duration: > 90 minutes/day Vital Signs Vital Signs Vital Signs: Blood pressure 180/120 Melanocytic lesion still present on the right neck Physical Exam Narrative No cervical lymphadenopathy Right neck with a 1 x 1 cm scar from the shave biopsy in the center of an area of a 1.5 x 1.5 cm melanated patch/lesion. Assessment & Plan Assessment/Plan (1) Melanoma in situ of neck: PLAN: I talked to the patient extensively about melanoma in situ, superficial spreading subtype. We talked about why we need to further remove tissue (wide local excision). All her questions were answered. We talked about resection with 0.5 cm margins circumferentially around the lesion. I talked her about the possibility of primary closure. I also talked her about the possibility of need for repeat excision of positive margins, and therefore I recommended that in the event we cannot close primarily without undue tension, that we place a temporary dressing while we wait for permanent margins following excision. This will be cadaver skin and a bolster dressing. Patient was in agreement with this plan. I talked to the patient extensively about the risks of surgery including bleeding, infection, damage to surrounding structures, wound healing complications, fluid collections, poor scarring, pain, failure to obtain the desired result, need for flap reconstruction and subsequent flap failure. We also talked about the complications that can arise from anesthesia. We talked about the risks of hypotension from anesthesia as well as DVT PE. Patient would like to proceed with excision in the operating room followed by either primary closure or placement of a temporary dressing followed by reconstruction once margins are clear. Possible MAC/Local INTERVAL H&P PLAN, DATE OF SURGERY: Her blood pressure was far too high (180/120) to safely proceed today. I personally called her primary care physician Kemar Adler and he is going to adjust her blood pressure medicine. We will reschedule her for next week Patient agreeable to the plan
[2024-08-29 09:10] VITALS: BP 186/127; PULSE 55; RESP 16; TEMP 36.2; O2SAT 98; BMI 39.2
[2024-08-29 09:13] LABS: Internal QC Validated? YES +Cl - CLEAR BKGD; Pregnancy, Urine Negative Negative; Record Kit Lot#,Urine Preg 0000947241
[2024-08-29 09:20] VITALS: BP 173/120
[2024-08-29] MEDS: Lactated Ringers 1,000 ML 15 ML IV (09:27)
--- NOTE | 2024-08-29 09:39 | NURSING ---
CANCELED DUE TO ELEVATED BP'S SYSTOLIC OVER 120. PT WAS INFORMED BY TO FOLLOW UP WITH PRIMARY CARE OFFICE AND TO RESCHEDULE WITH 'S OFFICE.
[2024-09-13] VITALS (7 sets, daily range): BP systolic 109–128; BP diastolic 65–89; PULSE 50–60; RESP 14–18; TEMP 36–36.4; O2SAT 94–100; BMI 38.5
[2024-09-13] MEDS: Lactated Ringers 1,000 ML 15 ML IV (11:15)
[2024-09-13 11:36] LABS: Internal QC Validated? YES +Cl - CLEAR BKGD; Pregnancy, Urine Negative Negative
[2024-09-13 11:37] LABS: Record Kit Lot#,Urine Preg 0000947241
--- NOTE | 2024-09-13 11:37 | PCM.HP.STD ---
HPI - General HPI Narrative Kristin Lane is a delightful 49-year-old female with past medical history of severe and life-threatening anorexia nervosa as well as alcohol use disorder (sober for 6 weeks) who presents as a referral for right neck melanoma in situ, superficial spreading subtype, referred to us by [facility]. The right neck lesion was biopsied at Dr. Vic Villanueva's practice on 11 Aug 2024 with a shave biopsy. The melanoma in situ extended to all specimen margins. No headaches Patient is not a smoker. She does not have a personal or family history of bleeding or clotting problems. No personal history of problems with anesthesia. Current Encounter (DATE OF SURGERY H&P UPDATE): I saw and examined the patient this morning in pre-operative holding. We discussed risks and benefits of today's surgery and they would like to proceed. NO CHANGE in health history since last seen and evaluated. Ready to proceed with surgery. [facility] Medical History Cancer Restless legs Non-smoker History of echocardiogram History of anorexia nervosa PTSD (post-traumatic stress disorder) delivery delivered Bulimia nervosa, extreme Hypertension Depression Home Medications ?Medication ?Instructions ?Recorded ?Last Taken ?Type clonidine HCl 0.2 mg tablet 0.2 mg PO TID BP 03/13/24 09/13/24 08:45 History metoprolol tartrate 100 mg tablet 100 mg PO BID 03/13/24 09/13/24 08:45 History oxcarbazepine 300 mg tablet 300 mg PO DAILY 03/13/24 Unknown History sertraline 100 mg tablet 200 mg PO DAILY 03/13/24 Unknown History ascorbic acid (vitamin C) 1,000 mg 1 g PO DAILY 08/25/24 Unknown History tablet (C-1000) multivitamin (Daily Multi-Vitamin 1 tab PO DAILY 08/25/24 Unknown History tablet) oxycodone 5 mg tablet 5 mg PO Q12H PRN pain 5 days #10 08/29/24 Unknown Rx tabs spironolactone 50 mg tablet 50 mg PO DAILY 09/04/24 Unknown History (Aldactone) Allergy/AdvReac Type Severity Reaction Status Date / Time ketorolac (From Toradol) AdvReac Unknown Other Verified 09/04/24 12:23 Family History Other Anxiety Asthma Depression Heart disease Hypertension Seizure activity as manifestation of blood transfusion reaction Thyroid disorder Social History Smoking Status: Former smoker alcohol intake: never substance use type: does not use what type of physical activity do you participate in: walking, running, aerobics and weight training frequency: daily duration: > 90 minutes/day Vital Signs Vital Signs Vital Signs: 09/13/24 11:24 09/13/24 11:24 Temperature 97.5 F L Temperature Source Temporal Respiratory Rate 16 Respiratory Pattern Normal Blood Pressure 128/89 H Blood Pressure Mean 102 Blood Pressure Source Monitor Blood Pressure Position Semi-Fowlers Blood Pressure Location Right Arm Pulse Ox 99 Oxygen Delivery Method Room Air Weight Weight: 268 lb 11.896 oz Body Mass Index (BMI) 38.5 Physical Exam Narrative No cervical lymphadenopathy Right neck with a 1 x 1 cm scar from the shave biopsy in the center of an area of a 1.5 x 1.5 cm melanated patch/lesion. Results Lab / Micro Data Labs: Laboratory Results - last 24 hr 09/13/24 11:20: Urine Test Negative Assessment & Plan Assessment/Plan (1) Melanoma in situ of neck: PLAN: I talked to the patient extensively about melanoma in situ, superficial spreading subtype. We talked about why we need to further remove tissue (wide local excision). All her questions were answered. We talked about resection with 0.5 cm margins circumferentially around the lesion. I talked her about the possibility of primary closure. I also talked her about the possibility of need for repeat excision of positive margins, and therefore I recommended that in the event we cannot close primarily without undue tension, that we place a temporary dressing while we wait for permanent margins following excision. This will be cadaver skin and a bolster dressing. Patient was in agreement with this plan. I talked to the patient extensively about the risks of surgery including bleeding, infection, damage to surrounding structures, wound healing complications, fluid collections, poor scarring, pain, failure to obtain the desired result, need for flap reconstruction and subsequent flap failure. We also talked about the complications that can arise from anesthesia. We talked about the risks of hypotension from anesthesia as well as DVT PE. Patient would like to proceed with excision in the operating room followed by either primary closure or placement of a temporary dressing followed by reconstruction once margins are clear. Possible MAC/Local INTERVAL H&P PLAN, DATE OF SURGERY: We will proceed with surgery today.
--- NOTE | 2024-09-13 12:25 | LES_PTH ---
PATIENT: ROSELYN PATRICK LOC: [facility] [place] U#:[id number] AGE/SX: 49/F ROOM: RE09/13/[address]: Dr. Adolfo Eng MD : [id number] BED: DIS: 09/13/2024 SPEC #: [id number] RECD: 09/13/24 14:43 STATUS: VINI VALORIE #: [id number] RIZWAN: 09/13/24 12:[address]: Adolfo Eng DEPT: SURGICAL PATHOLOGY RECD BY: Srinivasa Soler ENTERED: 09/13/24 14:54 SP TYPE: Lesion OTHR DR: Dr. Kemar Adler DO Tissues: A - Skin of neck, NOS Procedures: Immunohistochemical Stains Surgery Specimen Level IV IHC Stain ADDITIONAL HEADER OPERATION: Excision right neck melanoma in situ, primary closure PRE-OP DIAGNOSIS: Melanoma in situ of neck TISSUE SUBMITTED: A- Right neck melanoma in situ *short stitch- anterior, long stitch- cephalad* MICROSCOPIC DIAGNOSIS A. Neck, right, melanoma in situ, wide excision: - Malignant melanoma in situ, superficial spreading type, closely approaching and possibly touching the peripheral surgical margins towards the 6:00 margin - see Comment. - IHC for Melan-A supports the histologic impression of the absence of invasion. - Focal small benign lymph node. COMMENT A preliminary diagnosis was discussed with Dr Matteo Eng, 09/20/24. Selected slides/images were reviewed in intradepartmental consultation by Dr Jazmin Montanez (dermatopathology division, [facility]). MICROSCOPIC DESCRIPTION Slides are reviewed. All matched controls reacted appropriately. These tests were developed and their performance characteristics determined by [facility]. They may not have been cleared or approved by the [place]. Food and Drug Administration. The FDA has determined that such clearance or approval is not necessary.? The above immunohistochemical/dualISH?markers are reviewed by the Pathologist. GROSS DESCRIPTION Received in formalin labeled with the patient's name and date of . Designated as right neck melanoma in situ short stitch anterior, long stitch cephalad is a 3.7 x 2.1 cm olsen skin ellipse excised to a maximum depth of 0.9 cm and with orientation as follows:Long suture: designated as cephalad, redesign[facility] as 12[facility].Short suture: designated as anterior, redesignated as 3:00 [facility]. There is a 0.9 x 0.4 cm olsen-pink scar with surrounding, patchy hyperpigmentation (in an area collectively measuring 1.3 x 1.1 cm). The scar and surrounding hyperpigmentation is located the following distances from the margins:12:00: 1.5 cm 3:00: 0.4 cm 6:00: 1.4 cm9:00: 0.3 cmDeep: 0.7 cm Additionally, there are focal patchy hyperpigmented areas predominantly involving the 12:00 half of the skin surface, some of which abut the 3:00 peripheral edge; these areas appear separate from the area described above. Ink mclean: 12:00 half (deep): Yellow3:00 (periphery): Green9:00 (periphery): Blue6:00 half (deep): [place] The specimen is serially sectioned from 12:00 to 6:00 revealing focally congested/hemorrhagic cut surfaces (6:00 half). Entirely submitted, sequentially from 12:00 to 6:00 in 7 cassettes. [facility] 09/14/2024 CPT:05357,58954
--- NOTE | 2024-09-13 12:34 | PRE.ANES_ITS ---
ASA Classification* ASA Classification ASA Classification: 3 Assessment & Plan Anesthesia* Anesthesia Assessment Anesthesia Assessment: Discussed sedation and/or anesthesia options, risks, benefits, and alternatives with patient/parents/legal guardian/POA. Questions invited. The patient/parents/legal guardian/POA seems to understand and agrees to proceed with anesthesia plan. Reviewed the physical assessment, medical history, allergy history and patient home medications list prior to surgery/procedure/anesthetic and documented any changes. Performed airway and anesthesia risk assessments. Anesthesia Type Anesthesia Type: MAC History Source History Obtained from:: Patient and Chart Anesthesia Focused Assessment* Temperature: 97.5 F Pulse Rate: 55 Blood Pressure: 128/89 Respiratory Rate: 16 Pulse Ox: 99 Oxygen Delivery Method: Room Air Airway Assessment Mouth opens: >3 cm Mallampati Score: III Teeth Condition: Caps/Crowns (Patient has a crown. It is tight.) and Missing (Patient is missing the back left lower molar.) Neck Range of motion (ROM): Full ROM Labs Anesthesia Preop lab: CBC WBC 5.1 K/mm3 (4.4-11.0) 08/17/24 09:57 08/17/24 RBC 4.14 M/mm3 (4.2-5.4) L 08/17/24 09:57 08/17/24 Hgb 13.3 g/dL (12.0-15.0) 08/17/24 09:57 08/17/24 Hct 38.3 % (37-47) 08/17/24 09:57 08/17/24 Plt Count 173 K/mm3 (150-450) 08/17/24 09:57 08/17/24 CHEMISTRY Potassium 4.3 mmol/L (3.3-5.1) 08/17/24 09:57 08/17/24 Sodium 139 mmol/L (133-145) 08/17/24 09:57 08/17/24 Magnesium 2.2 mg/dL (1.8-2.4) 03/16/17 12:20 03/16/17 BUN 12 mg/dL (4-19) 08/17/24 09:57 08/17/24 Creatinine 0.88 mg/dL (0.70-1.20) 08/17/24 09:57 08/17/24 Glucose 94 mg/dL (70-99) 08/17/24 09:57 08/17/24 TSH 3.490 uIU/mL (0.300-4.200) 08/17/24 09:57 06/08/06 COAG Urine Test Negative Negative 09/13/24 11:20 09/13/24 Pre-Assessment Diagnosis/Proposed Procedure Planned Operative Procedure(s): EXCISION RIGHT NECK MELANOMA IN SITU Anesthesia History Anesthesia History - entry level account executive: Anesthesia History - entry level account executive Hx Hospitalization No 08/25/24 09:21 Any Problems With Anesthesia No 08/25/24 09:21 Cholinesterase deficiency No 08/25/24 09:21 You/Your Family Experience No 08/25/24 09:21 fever (hyperthermia) with Relationship Recent Exposure to Contagious No 09/13/24 11:24 Disease Does patient have nerve No 08/25/24 09:21 stimulator Patient instructed to have device shut off --Does patient have Pacemaker No 09/13/24 11:24 or ICD? When Was Last Pacemaker Check QUESTION #4 FULL TEXT: You/Your Family Experience fever (hyperthermia) with Anesthesia Last Oral Intake Last Oral intake: Last Oral Intake NPO since 23:00 09/13/24 11:24 Meds taken in AM with sips of Yes 09/13/24 11:24 water? Meds patient instructed to CLONIDINE 0.2MG @0845 09/13/24 11:24 take am of surgery METOPROLOL 100 MG @0845 Any additional information?: Yes Meds patient instructed to take am of surgery: Patient took a second dose of clonidine at 1240. PONV PONV - entry level account executive: PONV - entry level account executive Female Yes 08/25/24 09:21 HX of Motion Sickness No 08/25/24 09:21 HX of N/V After Surgery No 08/25/24 09:21 Non-Smoker Yes 08/25/24 09:21 Duration of Surgery greater Yes 08/25/24 09:21 than 60 minutes Number of Risk Factors 3 08/25/24 09:21 PONV Score Moderate Risk 08/25/24 09:21 Height & Weight Height & Weight: Anesthesia: Height & Weight Height 5 ft 10 in 09/13/24 11:24 Weight: 121.9 kg 09/13/24 11:24 Body Mass Index (BMI) 38.5 09/13/24 11:24 Respiratory Assessment Respiratory Assessment - entry level account executive: Respiratory Tract Infection Hx - entry level account executive Hx Respiratory Tract Infection No 08/25/24 09:21 STOP Sleep Apnea STOP Sleep Apnea - entry level account executive: STOP Sleep Apnea - entry level account executive Hx Hypertension Yes: ON MEDS BUT STILL RUNS 08/25/24 09:21 HIGH PER PATIENT Hx Sleep Apnea No 08/25/24 09:21 CPAP BIPAP Do you snore loudly (louder Yes 08/25/24 09:21 than talking or can be heard Do you often feel tired/ No 08/25/24 09:21 fatigued/ sleepy during daytime? Has anyone observed you stop No 08/25/24 09:21 breathing during sleep? STOP Results Positive 08/25/24 09:21 QUESTION #5 FULL TEXT : Do you snore loudly (louder than talking or can be heard through closed doors)? Tobacco Use History Tobacco Use History - entry level account executive: Tobacco Use History - entry level account executive Tobacco Use Smoking Status Never smoker 08/25/24 09:21 Hx Tobacco Use No 08/25/24 09:21 Years Smoking Packs Smoked per Day Smoking Cessation Date was within the last 15 years Hx Smoking Cessation Date Hx Smoking Cessation Counseling Hematologic Medial History Hematologic Hx - entry level account executive: Hematologic Medical Hx - polisher numeral Hx of Blood Transfusion No 08/25/24 09:21 Hx of Transfusion in last 3 No 08/25/24 09:21 Months Date of Last Transfusion (if within last 3 months) Ever experience any problems No 08/25/24 09:21 with transfusion(s)? Specify any problems Hx of Preganancy in last 3 No 08/25/24 09:21 Months Nurse Filling Out Transfusion DSCHRIBER 08/25/24 09:21 & Questions: Date: 08/25/24 08/25/24 09:21 Time: 09:23 08/25/24 09:21 Patient unable to answer at this time (ie. confused, unrespo /Reproduction History /Reproductive History - entry level account executive: /Reproductive Hx- entry level account executive Hx Now No 08/25/24 09:21 Gestational Age (in weeks): EDC: Hx Hx Para Hx Section SAB No 08/25/24 09:21 Active Medications Active Medications: Current Medications Generic Name Dose Route Start Last Admin Trade Name Freq PRN Reason Stop Dose Admin Cefazolin Sodium 2 gm/ Sodium 110 mls @ 200 mls/hr 09/13/24 12:25 Chloride IV 09/13/24 12:57 INTRAOP ONE Lactated Ringer's 1,000 mls @ 15 mls/hr 09/13/24 11:15 IV .Q48H GILES PFSH Medical History Cancer Restless legs Non-smoker History of echocardiogram History of anorexia nervosa PTSD (post-traumatic stress disorder) delivery delivered Bulimia nervosa, extreme Hypertension Depression Home Medications ?Medication ?Instructions ?Recorded ?Last Taken ?Type clonidine HCl 0.2 mg tablet 0.2 mg PO TID BP 03/13/24 09/13/24 12:39 History metoprolol tartrate 100 mg tablet 100 mg PO BID 09/13/24 08:45 History oxcarbazepine 300 mg tablet 300 mg PO DAILY 03/13/24 U nknown History sertraline 100 mg tablet 200 mg PO DAILY 03/13/24 Unk nown History ascorbic acid (vitamin C) 1,000 mg 1 g PO DAILY Unknown History tablet (C-1000) multivitamin (Daily Multi-Vitamin 1 tab PO DAILY 08/25 Unknown History tablet) oxycodone 5 mg tablet 5 mg PO Q12H PRN pain 5 days #10 08/29/24 Unknown Rx tabs spironolactone 50 mg tablet 50 mg PO DAILY 09/04/24 Un known History (Aldactone) Allergy/AdvReac Type Severity Reaction Status Date / Time ketorolac (From Toradol) AdvReac Unknown Other Verified 09/04/24 12:23 Family History Other Anxiety Asthma Depression Heart disease Hypertension Seizure activity as manifestation of blood transfusion reaction Thyroid disorder Social History Smoking Status: Former smoker alcohol intake: never substance use type: does not use what type of physical activity do you participate in: walking, running, aerobics and weight training frequency: daily duration: > 90 minutes/day Review of Systems (Anesthesia) ROS Narrative System reviewed and no additional complaints, except as documented.
[2024-09-13] MEDS: Cefazolin 2 GM in 0.9% Normal Saline (100mL Bag) 100 ML IV (13:13)
[2024-09-13] MEDS: Bupiv/Epi 0.25% 30 ML Vial (13:37)
[2024-09-13] MEDS: Lidocaine 1% /Epi 1:100 (20ml) 20 ML Vial (13:37)
--- NOTE | 2024-09-13 14:09 | PCM.POST.ANE ---
Anesthesia: Postop Eval I Current Vital Signs Temperature: 96.9 F Pulse Rate: 57 Blood Pressure: 117/65 Respiratory Rate: 16 Pulse Ox: 98 Oxygen Delivery Method: Room Air Assessment Airway patent: Yes Spontaneous unlabored respirations: Yes Mental status: Awake and Calm nausea: No Vomiting: No Anesthesia Complication: No Fluid Hydration Crystalloid volume administer (ml): 400 Total IV fluid infused: 400 Progress Note Anesthesia document: Postop Eval 1 completed: Yes
--- NOTE | 2024-09-13 21:06 | POSTOPAN2_ITS ---
Anesthesia Postop Eval I Sum Postop Eval Completion status Anesthesia document: Postop Eval 1 completed: Yes Anesthesia Postop Eval I Summary Anesthesia Postop Eval I Summary: Anesthesia Postop Eval I: Assessment Summary Airway patent Yes 09/13/24 14:10 HEALTH PLAN ADVISOR.[email or web address] Spontaneous unlabored Yes 09/13/24 14:10 HEALTH PLAN ADVISOR.[email or web address] respirations Mental status Awake,Calm 09/13/24 14:10 HEALTH PLAN ADVISOR.[email or web address] nausea No 09/13/24 14:10 HEALTH PLAN ADVISOR.GDOTT Vomiting No 09/13/24 14:10 HEALTH PLAN ADVISOR.GDOTT Anesthesia Postop Eval I: Fluid Summary Crystalloid volume administer 400 09/13/24 14:10 HEALTH PLAN ADVISOR.GDOTT (ml) Colloids volume administered ( ml) Blood Product volume administered (ml) Total IV fluid infused 400 09/13/24 14:10 HEALTH PLAN ADVISOR.GDOTT Anesthesia Postop Eval I: Summary Notes Anesthesia Complication No 09/13/24 14:10 HEALTH PLAN ADVISOR.GDOTT Anesthesia Complication Comment: Post-operative progress note Anesthesia: Postop Eval II Evaluation Mental status: Awake and Calm Pain Level: 1 nausea: No Vomiting: No Complications Anesthesia Complication: No
--- NOTE | 2024-09-13 21:06 | PCM.POSTANE2 ---
Anesthesia Postop Eval I Sum Postop Eval Completion status Anesthesia document: Postop Eval 1 completed: Yes Anesthesia Postop Eval I Summary Anesthesia Postop Eval I Summary: Anesthesia Postop Eval I: Assessment Summary Airway patent Yes 09/13/24 14:10 STOCK [email or web address] Spontaneous unlabored Yes 09/13/24 14:10 STOCK [email or web address].[email or web address] respirations Mental status Awake,Calm 09/13/24 14:10 STOCK [email or web address].[email or web address] nausea No 09/13/24 14:10 STOCK BLENDER.GDOTT Vomiting No 09/13/24 14:10 STOCK [email or web address].[email or web address] Anesthesia Postop Eval I: Fluid Summary Crystalloid volume administer 400 09/13/24 14:10 STOCK [email or web address].GDOTT (ml) Colloids volume administered ( ml) Blood Product volume administered (ml) Total IV fluid infused 400 09/13/24 14:10 STOCK [email or web address].GDOTT Anesthesia Postop Eval I: Summary Notes Anesthesia Complication No 09/13/24 14:10 STOCK [email or web address].[email or web address] Anesthesia Complication Comment: Post-operative progress note Anesthesia: Postop Eval II Evaluation Mental status: Awake and Calm Pain Level: 1 nausea: No Vomiting: No Complications Anesthesia Complication: No
--- NOTE | 2024-09-14 07:38 | OP.PCM_ITS ---
Operative Report (Standard) Operative Information Date of Procedure: 09/13/24 Pre-Operative Diagnosis: Right upper neck melanoma in situ, superficial spreading subtype Post-Operative Diagnosis: Same Surgery/Procedure Performed: 1) Wide local excision of right upper neck melanoma in situ lesion, 5 mm margins, 3 x 5 cm excision (CPT: 35747) 2) Intermediate closure, right neck wound, 5 cm, (CPT: 20335) manager organizational: Yes Batch Unit Treater: Alexandr Sargent Tasks completed by printer's assistant: Retracting Type of Anesthesia: MAC/Supplemental (10 cc of a 50-50 mixture of 1% lidocaine with 1-200,000 epinephrine and quarter percent Marcaine with 1-200,000 epinephrine) RN Documented Start/Stop Times: Operation Date: 09/13/24 12:25 Case Time Into Pre-Op 09/13/24 11:06 Out of Pre-Op 09/13/24 13:07 Anesthesia Start 09/13/24 13:13 Into Room 09/13/24 13:13 Procedure Start 09/13/24 13:37 Procedure End 09/13/24 13:56 Anesthesia End 09/13/24 14:01 Out of Room 09/13/24 14:01 Into Recovery 09/13/24 14:06 Into Phase II Recovery 09/13/24 14:21 Out of Recovery 09/13/24 14:21 Out of Phase II 09/13/24 14:55 Procedure Start Time: 13:37 Procedure Stop Time: 13:56 Select all DRAINS/GRAFTS/IMPLANTS that apply: None Estimated Blood Loss: Minimal Specimen collected: Yes Description of specimen(s) removed: Melanoma in situ lesion marked short anterior long cephalad Description of surgery: Indications: Kristin Lane is a delightful 49-year-old female with a biopsy-proven melanoma in situ, superficial spreading subtype, on the right upper neck. She presents today for wide local excision. I talked her about the risk benefits and alternatives to the procedure and she agreed to proceed. Procedure details: Patient was correct identified in preoperative holding and the lesion was marked. The lesion was confirmed with the patient in agreement with the site marking as this was consistent with the biopsy site In the referral from the dry lumber grader. 5 mm margins were marked circumferentially around the lesion. The patient was taken back to the operative room where she was sedated and local anesthesia was administered as noted above. She was prepped and draped in sterile fashion and a proper timeout was performed. A 15 blade scalpel was used to excise the 3 x 5 cm lesion and tenotomy scissors were used to dissect down to the level of the platysma for complete excision full-thickness. The specimen was marked short anterior and long cephalad with a silk stitch. Hemostasis was obtained with Bovie electrocautery. The wound was irrigated with copious amounts normal saline. Closure was then performed of the 5 cm wound with 3-0 Monocryl deep dermal suture followed by 3-0 Monocryl running subcuticular suture. Steri-Strips were applied. The patient tolerated the procedure well and was awakened and taken to the PACU in stable condition. Postoperative plan: Follow-up in 1 week for review of pathology and for wound check. Synoptic Portion: Element Response Options Operation performed with curative intent. Y Original Breslow thickness of the lesion [Melanoma in situ (MIS), superficial spreading subtype Clinical margin width (measured from the edge of the lesion or the prior excision scar [0.5 cm) Depth of excision [Full-thickness skin/subcutaneous tissue down to fascia (underlying SMAS/platysma fascia) Surgical Findings: Able to close without significant tension following excision with 5 mm margins Complications Complications: No Admit VTE Documentation VTE Mechan Device Prophylaxis: SCD's
== END 2024-09-13 14:55 | disposition home or self-care (01) ==
LOC: SDC 10:59 → AC 11:00
PROVIDERS: Anesthesiology; PCP Family Medicine; Referring Provider Surgery Plastic and Reconstructive Surgery; Visit Provider Surgery Plastic and Reconstructive Surgery
PROC: (CPT 11606; principal; 2024-08-29 09:50)
DX: D03.4 Melanoma in situ of scalp and neck (principal); I10 Essential (primary) hypertension; F32.A Depression, unspecified; F43.10 Post-traumatic stress disorder, unspecified; G25.81 Restless legs syndrome; Z79.899 Other long term (current) drug therapy; Z87.891 Personal history of nicotine dependence; Z87.898 Personal history of other specified conditions
CPT/HCPCS: 11606; 12042; 00300; 81025; 88305; 88341; 88342; J2405

== ENCOUNTER 2024-09-29 10:14 | Day surgery (SDC) | payer OTHER, SELFPAY ==
[2024-09-29] VITALS (8 sets, daily range): BP systolic 117–145; BP diastolic 82–97; PULSE 51–84; RESP 14–18; TEMP 36.1–37; O2SAT 95–99; BMI 38.8
[2024-09-29 10:57] LABS: Internal QC Validated? YES +Cl - CLEAR BKGD; Pregnancy, Urine Negative Negative; Record Kit Lot#,Urine Preg 962302
--- NOTE | 2024-09-29 11:00 | PCM.HP.STD ---
HPI - General HPI Narrative ROESLYN PATRICK, is a 49 F who presents with positive right neck surgical margins. Presents today for re-excision of the scar for 5 mm margins around the MIS. [facility] Medical History OCD (obsessive compulsive disorder) Cancer Restless legs Non-smoker History of echocardiogram History of anorexia nervosa PTSD (post-traumatic stress disorder) delivery delivered Bulimia nervosa, extreme Hypertension Depression Home Medications ?Medication ?Instructions ?Recorded ?Last Taken ?Type clonidine HCl 0.2 mg tablet 0.2 mg PO TID BP 03/13/24 09/29/24 09:00 History metoprolol tartrate 100 mg tablet 100 mg PO BID 03/13/24 09/29/24 09:00 History oxcarbazepine 300 mg tablet 300 mg PO DAILY 03/13/24 Unknown History sertraline 100 mg tablet 200 mg PO DAILY 03/13/24 Unknown History ascorbic acid (vitamin C) 1,000 mg 1 g PO DAILY 08/25/24 Unknown History tablet (C-1000) multivitamin (Daily Multi-Vitamin 1 tab PO DAILY 08/25/24 Unknown History tablet) oxycodone 5 mg tablet 5 mg PO Q12H PRN pain 5 days #10 08/29/24 Unknown Rx tabs spironolactone 50 mg tablet 50 mg PO DAILY 09/04/24 Unknown History (Aldactone) clomipramine 25 mg capsule 25 mg PO QHS #30 caps 09/20/24 Unknown Rx oxycodone 5 mg tablet 5 mg PO Q8H PRN pain 5 days #14 09/29/24 Unknown Rx tabs Allergy/AdvReac Type Severity Reaction Status Date / Time ketorolac (From Toradol) AdvReac Unknown Other Verified 09/29/24 10:50 Family History Other Anxiety Asthma Depression Heart disease Hypertension Seizure activity as manifestation of blood transfusion reaction Thyroid disorder Surgical History History of surgical removal of lesion Social History Smoking Status: Former smoker alcohol intake: never substance use type: does not use what type of physical activity do you participate in: walking, running, aerobics and weight training frequency: daily duration: > 90 minutes/day Vital Signs Vital Signs Vital Signs: 09/29/24 10:52 09/29/24 10:52 Temperature 98.6 F Temperature Source Temporal Pulse Rate 84 Respiratory Rate 18 Respiratory Pattern Normal Blood Pressure 145/97 H Blood Pressure Mean 113 Blood Pressure Source Monitor Blood Pressure Position Sitting Blood Pressure Location Left Arm Pulse Ox 98 Oxygen Delivery Method Room Air Weight Weight: 270 lb 11.642 oz Body Mass Index (BMI) 38.8 Physical Exam Narrative Right neck with c/d/i incision. Likely still enough laxity for primary closure Results Lab / Micro Data Labs: Laboratory Results - last 24 hr 09/29/24 10:30: Urine Test Negative Assessment & Plan Assessment/Plan (1) Melanoma in situ of neck: PLAN: Plan INTERVAL H&P PLAN, DATE OF SURGERY: We will proceed with surgery today. I talked to the patient extensively about the risks of surgery, including bleeding, infection, damage to surrounding structures, poor scaring, surgical site dehiscence and wound formation, need for wound care, need for repeat operations, failure to obtain the desired result, DVT/PE, and the risks of anesthesia including , including stroke (from low blood pressure/ischemia or clot). The benefits and alternatives of this surgery were also discussed. All of their questions were answered, and they agreed to proceed with surgery. Plan for re-excision of the scar with 5 mm margins today. We reviewed the pathology report together in preoperative holding, which reported likely positive margins and therefore we agreed to re-excision. We talked about risks, benefits, and alternatives to re-excision. She was in agreement with this plan for re-excision with definitive margins.
[2024-09-29] MEDS: Lactated Ringers 1,000 ML 15 ML IV (11:03)
--- NOTE | 2024-09-29 11:43 | PRE.ANES_ITS ---
ASA Classification* ASA Classification ASA Classification: 2 Assessment & Plan Anesthesia* Anesthesia Assessment Anesthesia Assessment: Discussed sedation and/or anesthesia options, risks, benefits, and alternatives with patient/parents/legal guardian/POA. Questions invited. The patient/parents/legal guardian/POA seems to understand and agrees to proceed with anesthesia plan. Reviewed the physical assessment, medical history, allergy history and patient home medications list prior to surgery/procedure/anesthetic and documented any changes. Performed airway and anesthesia risk assessments. Anesthesia Type Anesthesia Type: MAC History Source History Obtained from:: Patient and Chart Anesthesia Focused Assessment* Temperature: 98.6 F Pulse Rate: 84 Blood Pressure: 145/97 Respiratory Rate: 18 Pulse Ox: 98 Oxygen Delivery Method: Room Air Airway Assessment Mouth opens: >3 cm Mallampati Score: I Teeth Condition: Intact Neck Range of motion (ROM): Full ROM Labs Anesthesia Preop lab: CBC WBC 5.1 K/mm3 (4.4-11.0) 08/17/24 09:08/17/24 RBC 4.14 M/mm3 (4.2-5.4) L 08/17/24 09:57 08/17/24 Hgb 13.3 g/dL (12.0-15.0) 08/17/24 09:57 08/17/24 Hct 38.3 % (37-47) 08/17/24 09:57 08/17/24 Plt Count 173 K/mm3 (150-450) 08/17/24 09:57 08/17/24 CHEMISTRY Potassium 4.3 mmol/L (3.3-5.1) 08/17/24 09:57 08/17/24 Sodium 139 mmol/L (133-145) 08/17/24 09:57 08/17/24 Magnesium 2.2 mg/dL (1.8-2.4) 03/16/17 12:20 03/16/17 BUN 12 mg/dL (4-19) 08/17/24 09:57 08/17/24 Creatinine 0.88 mg/dL (0.70-1.20) 08/17/24 09:57 08/17/24 Glucose 94 mg/dL (70-99) 08/17/24 09:57 08/17/24 TSH 3.490 uIU/mL (0.300-4.200) 08/17/24 09:57 06/0 08/06 COAG Urine Test Negative Negative 09/29/24 10:30 09/29/24 Pre-Assessment Diagnosis/Proposed Procedure Planned Operative Procedure(s): RE-EXCISION OF RIGHT NECK MALANOMA INSITU FOR POSITVE MARGINS POSS THERASKIN Anesthesia History Anesthesia History - radiation / chemistry technician: Anesthesia History - radiation / chemistry technician Hx Hospitalization No 09/28/24 08:55 Any Problems With Anesthesia No 09/28/24 08:55 Cholinesterase deficiency No 09/28/24 08:55 You/Your Family Experience No 09/28/24 08:55 fever (hyperthermia) with Relationship Recent Exposure to Contagious No 09/29/24 10:52 Disease Does patient have nerve No 09/28/24 08:55 stimulator Patient instructed to have device shut off --Does patient have Pacemaker No 09/29/24 10:52 or ICD? When Was Last Pacemaker Check QUESTION #4 FULL TEXT: You/Your Family Experience fever (hyperthermia) with Anesthesia Last Oral Intake Last Oral intake: Last Oral Intake NPO since 22:30 09/29/24 10:52 Meds taken in AM with sips of Yes 09/29/24 10:52 water? Meds patient instructed to metoprolol, clonidine 09/29/24 10:52 take am of surgery PONV PONV - radiation / chemistry technician: PONV - radiation / chemistry technician Female Yes 09/28/24 08:55 HX of Motion Sickness No 09/28/24 08:55 HX of N/V After Surgery No 09/28/24 08:55 Non-Smoker Yes 09/28/24 08:55 Duration of Surgery greater Yes 09/28/24 08:55 than 60 minutes Number of Risk Factors 3 09/28/24 08:55 PONV Score Moderate Risk 09/28/24 08:55 Height & Weight Height & Weight: Anesthesia: Height & Weight Height 5 ft 10 in 09/29/24 10:52 Weight: 122.8 kg 09/29/24 10:52 Body Mass Index (BMI) 38.8 09/29/24 10:52 Respiratory Assessment Respiratory Assessment - radiation / chemistry technician: Respiratory Tract Infection Hx - radiation / chemistry technician Hx Respiratory Tract Infection No 09/28/24 08:55 STOP Sleep Apnea STOP Sleep Apnea - radiation / chemistry technician: STOP Sleep Apnea - radiation / chemistry technician Hx Hypertension Yes: BETTER CONTROL WITH 09/28/24 08:55 MEDS Hx Sleep Apnea No 09/28/24 08:55 CPAP BIPAP Do you snore loudly (louder No 09/28/24 08:55 than talking or can be heard Do you often feel tired/ No 09/28/24 08:55 fatigued/ sleepy during daytime? Has anyone observed you stop No 09/28/24 08:55 breathing during sleep? STOP Results Negative 09/28/24 08:55 QUESTION #5 FULL TEXT : Do you snore loudly (louder than talking or can be heard through closed doors)? Tobacco Use History Tobacco Use History - radiation / chemistry technician: Tobacco Use History - radiation / chemistry technician Tobacco Use Smoking Status Former smoker 09/28/24 08:55 Hx Tobacco Use No 09/28/24 08:55 Years Smoking Packs Smoked per Day Smoking Cessation Date was No - quit smoking greater 09/28/24 08:55 within the last 15 years than 15 years ago Hx Smoking Cessation Date Hx Smoking Cessation No 09/28/24 08:55 Counseling Hematologic Medial History Hematologic Hx - radiation / chemistry technician: Hematologic Medical Hx - engrosser Hx of Blood Transfusion No 09/28/24 08:55 Hx of Transfusion in last 3 No 09/28/24 08:55 Months Date of Last Transfusion (if within last 3 months) Ever experience any problems No 09/28/24 08:55 with transfusion(s)? Specify any problems Hx of Preganancy in last 3 No 09/28/24 08:55 Months Nurse Filling Out Transfusion DSCHRIBER 09/28/24 08:55 & Questions: Date: 09/28/24 09/28/24 08:55 Time: 08:56 09/28/24 08:55 Patient unable to answer at this time (ie. confused, unrespo /Reproduction History /Reproductive History - radiation / chemistry technician: /Reproductive Hx- radiation / chemistry technician Hx Now Gestational Age (in weeks): EDC: Hx Hx Para Hx Section SAB No 09/28/24 08:55 Active Medications Active Medications: Current Medications Generic Name Dose Route Start Last Admin Trade Name Freq PRN Reason Stop Dose Admin Cefazolin Sodium 3 gm/ Sodium 115 mls @ 200 mls/hr 09/29/24 11:45 Chloride IV 09/29/24 12:19 INTRAOP ONE Lactated Ringer's 1,000 mls @ 15 mls/hr 09/29/24 10:30 09/29/24 11:03 IV 15 mls/hr .Q48H GILES Administration PFSH Medical History OCD (obsessive compulsive disorder) Cancer Restless legs Non-smoker History of echocardiogram History of anorexia nervosa PTSD (post-traumatic stress disorder) delivery delivered Bulimia nervosa, extreme Hypertension Depression Home Medications ?Medication ?Instructions ?Recorded ?Last Taken ?Type clonidine HCl 0.2 mg tablet 0.2 mg PO TID BP 03/13/24 09/29/24 09:00 History metoprolol tartrate 100 mg tablet 100 mg PO BID 09/29/24 09:00 History oxcarbazepine 300 mg tablet 300 mg PO DAILY 03/13/24 U nknown History sertraline 100 mg tablet 200 mg PO DAILY 03/13/24 Unk nown History ascorbic acid (vitamin C) 1,000 mg 1 g PO DAILY Unknown History tablet (C-1000) multivitamin (Daily Multi-Vitamin 1 tab PO DAILY 08/25 Unknown History tablet) oxycodone 5 mg tablet 5 mg PO Q12H PRN pain 5 days #10 08/29/24 Unknown Rx tabs spironolactone 50 mg tablet 50 mg PO DAILY 09/04/24 Un known History (Aldactone) clomipramine 25 mg capsule 25 mg PO QHS #30 caps 09/20 Unknown Rx oxycodone 5 mg tablet 5 mg PO Q8H PRN pain 5 days #14 09/29/24 Unknown Rx tabs Allergy/AdvReac Type Severity Reaction Status Date / Time ketorolac (From Toradol) AdvReac Unknown Other Verified 09/29/24 10:50 Family History Other Anxiety Asthma Depression Heart disease Hypertension Seizure activity as manifestation of blood transfusion reaction Thyroid disorder Surgical History History of surgical removal of lesion Social History Smoking Status: Former smoker alcohol intake: never substance use type: does not use what type of physical activity do you participate in: walking, running, aerobics and weight training frequency: daily duration: > 90 minutes/day Review of Systems (Anesthesia) ROS Narrative System reviewed and no additional complaints, except as documented.
--- NOTE | 2024-09-29 11:45 | LES_PTH ---
PATIENT: ROSELYN PATRICK LOC: [facility] U#:[id number] AGE/SX: 49/F ROOM: RE09/29/[address]: Dr. Adolfo Eng MD : [id number] BED: DIS: 09/29/2024 SPEC #: [id number] RECD: 09/29/24 13:09 STATUS: VINI VALORIE #: [id number] RIZWAN: 09/29/24 11:[address]: Adolfo Eng DEPT: SURGICAL PATHOLOGY RECD BY: Srinivasa Soler ENTERED: 10/02/24 11:08 SP TYPE: Lesion OTHR DR: Dr. Kemar Adler DO Tissues: A - Skin of neck, NOS Procedures: Surgery Specimen Level IV HEADER OPERATION: Re-excision of right neck melanoma in situ for positive margin PRE-OP DIAGNOSIS: Melanoma in situ of neck TISSUE SUBMITTED: A- Right neck melanoma in situ *short stitch - anterior, long stitch - cephalad* MICROSCOPIC DIAGNOSIS A. Neck, right, melanoma in situ, re-excision: - Focal residual melanoma in situ, surgical margins free - see Comment. - Scar and associated reactive changes consistent with a previous surgical procedure. COMMENT Selected slides/images were reviewed in intradepartmental consultation by Dr Jazmin Montanez (dermatopathology division, [facility]). MICROSCOPIC DESCRIPTION Slides are reviewed. GROSS DESCRIPTION A. Received in formalin labeled with the patient's name and date of . Designated as R neck melanoma in situ is a 7.3 x 1.0 cm olsen skin ellipse excised to a depth of 0.3-0.7 cm and with orientation as follows:Short suture: designated as anterior, redesignated as 3:00 per the grossing PA.Long suture: designated as cephalad, redesignated as 12:00 [facility]. There is a vague, linear skin scar, spanning 12:00 to 6:00, approximately 5.0 cm in length by <0.1 cm in diameter. The scar is located the following distances from the margins:12:00: <0.2 cm 3:00: 0.4 cm 6:00: 0.9 cm9:00: 0.4 cmDeep: 0.3 cm Ink mclean: 12:00 half (deep): Red3:00 (periphery): Green9:00 (periphery): Blue6:00 half (deep): [place] The specimen is serially sectioned from 12:00 to 6:00, and entirely submitted, sequentially in 6 cassettes. MA 10/02/2024 CPT:80180
--- NOTE | 2024-09-29 11:59 | OP.PCM_ITS ---
Operative Report (Standard) Operative Information Date of Procedure: 09/29/24 Pre-Operative Diagnosis: Right upper neck melanoma in situ, superficial spreading subtype, positive surgical margins at previous resection site Post-Operative Diagnosis: Same Surgery/Procedure Performed: 1) Repeat excision for definitive surgical margins of right upper neck melanoma in situ, superficial spreading subtype, 1.2 x 6.2 cm (with 5 mm margins included) (CPT: 19382) 2) Intermediate closure right upper neck melanoma in situ repeat excision wound, 6.2 cm, (CPT: 69319) caregiver services home: Yes Vessel Engineer: Niki Grmim Tasks completed by certified first assistant: Retracting Type of Anesthesia: Local MAC (10 cc of 50-50 mixture of 1% lidocaine with 1-
--- NOTE | 2024-09-29 11:59 | PCM.OPRPT ---
Operative Report (Standard) Operative Information Date of Procedure: 09/29/24 Pre-Operative Diagnosis: Right upper neck melanoma in situ, superficial spreading subtype, positive surgical margins at previous resection site Post-Operative Diagnosis: Same Surgery/Procedure Performed: 1) Repeat excision for definitive surgical margins of right upper neck melanoma in situ, superficial spreading subtype, 1.2 x 6.2 cm (with 5 mm margins included) (CPT: 24960) 2) Intermediate closure right upper neck melanoma in situ repeat excision wound, 6.2 cm, (CPT: 20168) prop maker: Yes Research Chief Engineer: Niki Grimm Tasks completed by registered nurse first assistant: Retracting Type of Anesthesia: Local MAC (10 cc of 50-50 mixture of 1% lidocaine with 1-200,000 epinephrine and quarter percent Marcaine with 1-200,000 epinephrine) RN Documented Start/Stop Times: Operation Date: 09/29/24 11:45 Case Time Into Pre-Op 09/29/24 10:26 Out of Pre-Op 09/29/24 11:54 Anesthesia Start 09/29/24 11:57 Into Room 09/29/24 11:57 Procedure Start 09/29/24 12:11 Procedure Start Time: 12:11 Procedure Stop Time: 12:27 Select all DRAINS/GRAFTS/IMPLANTS that apply: None Estimated Blood Loss: 5 cc Specimen collected: Yes Description of specimen(s) removed: Melanoma in situ lesion marked short anterior long cephalad Description of surgery: Indications: Kristin Lane is a delightful 49-year-old female with a melanoma in situ of the right upper neck. I talked to her about the margins from the previous 5 mm margin resection. One pathologist read it as very close surgical margins and another pathologist thought the margins were positive. After discussion with the patient, we recommended reexcision. Patient was in agreement with plan for reexcision for definitive surgical margins. She understands the risks, benefits, and alternatives to the procedure. Procedure details: Patient was correctly identified in preoperative holding and 5 mm margins were marked around the scar. She was taken back to the operating room where she was administered MAC local anesthesia as noted above and she was prepped and draped in sterile fashion. A timeout was performed. 15 blade scalpel was used to excise the scar with 5 mm margins (1.2 x 6.2 cm excision). It was marked short anterior and long cephalad with a silk stitch. Hemostasis obtained with Bovie electrocautery. The excision was down to the platysma fascia. The wound was irrigated with copious amounts normal saline. The wound edges were then closed in layers with 3-0 Monocryl deep dermal sutures followed by 3-0 Monocryl running subcuticular sutures and Steri-Strips. This was a total intermediate closure of 6.2 cm. Patient tolerated the procedure well. She was awakened and taken to the PACU in stable condition. Synoptic Portion: Element Response Options Operation performed with curative intent. [Yes; Original Breslow thickness of the lesion [Melanoma in situ (MIS) Clinical margin width (measured from the edge of the lesion or the prior excision scar [0.5 cm Depth of excision [Full-thickness skin/subcutaneous tissue down to fascia over the platysma Surgical Findings: No evidence of residual melanoma/melanocytic lesion Able to close primarily Complications Complications: No Admit VTE Documentation VTE Mechan Device Prophylaxis: SCD's
[2024-09-29] MEDS: Lidocaine 1% /Epi 1:100 (20ml) 20 ML Vial (12:22)
[2024-09-29] MEDS: Bupiv/Epi 0.25% 30 ML Vial (12:22)
--- NOTE | 2024-09-29 12:37 | PCM.POST.ANE ---
Anesthesia: Postop Eval I Current Vital Signs Temperature: 97.1 F Pulse Rate: 56 Blood Pressure: 122/83 Respiratory Rate: 14 Pulse Ox: 95 Assessment Airway patent: Yes Spontaneous unlabored respirations: Yes nausea: No Vomiting: No Anesthesia Complication: No Fluid Hydration Crystalloid volume administer (ml): 300 Total IV fluid infused: 300 Progress Note Anesthesia document: Postop Eval 1 completed: Yes
--- NOTE | 2024-09-29 13:18 | SUR.PHASEII ---
patient notes stuffy nose and draining nose after procedure.
--- NOTE | 2024-09-29 14:19 | POSTOPAN2_ITS ---
Anesthesia Postop Eval I Sum Postop Eval Completion status Anesthesia document: Postop Eval 1 completed: Yes Anesthesia Postop Eval I Summary Anesthesia Postop Eval I Summary: Anesthesia Postop Eval I: Assessment Summary Airway patent Yes 09/29/24 12:37 [email or web address] Spontaneous unlabored Yes 09/29/24 12:37 [email or web address] [email or web address] respirations Mental status nausea No 09/29/24 12:37 [email or web address] [email or web address].[email or web address] Vomiting No 09/29/24 12:37 [email or web address] [email or web address].[email or web address] Anesthesia Postop Eval I: Fluid Summary Crystalloid volume administer 300 09/29/24 12:37 [email or web address] [email or web address].[email or web address] (ml) Colloids volume administered ( ml) Blood Product volume administered (ml) Total IV fluid infused 300 09/29/24 12:37 [email or web address] [email or web address].[email or web address] Anesthesia Postop Eval I: Summary Notes Anesthesia Complication No 09/29/24 12:37 [email or web address] [email or web address].[email or web address] Anesthesia Complication Comment: Post-operative progress note Anesthesia: Postop Eval II Evaluation Mental status: Awake and Calm Pain Level: 0 nausea: No Vomiting: No Complications Anesthesia Complication: No
--- NOTE | 2024-09-29 14:19 | PCM.POSTANE2 ---
Anesthesia Postop Eval I Sum Postop Eval Completion status Anesthesia document: Postop Eval 1 completed: Yes Anesthesia Postop Eval I Summary Anesthesia Postop Eval I Summary: Anesthesia Postop Eval I: Assessment Summary Airway patent Yes 09/29/24 12:37 VETERINARY SURGERY [email or web address].[email or web address] Spontaneous unlabored Yes 09/29/24 12:37 VETERINARY SURGERY TECHNOLOGIST.[email or web address] respirations Mental status nausea No 09/29/24 12:37 VETERINARY SURGERY [email or web address].[email or web address] Vomiting No 09/29/24 12:37 VETERINARY SURGERY [email or web address].TNES Anesthesia Postop Eval I: Fluid Summary Crystalloid volume administer 300 09/29/24 12:37 VETERINARY SURGERY TECHNOLOGIST.TNES (ml) Colloids volume administered ( ml) Blood Product volume administered (ml) Total IV fluid infused 300 09/29/24 12:37 VETERINARY SURGERY TECHNOLOGIST.TNES Anesthesia Postop Eval I: Summary Notes Anesthesia Complication No 09/29/24 12:37 VETERINARY SURGERY TECHNOLOGIST.TNES Anesthesia Complication Comment: Post-operative progress note Anesthesia: Postop Eval II Evaluation Mental status: Awake and Calm Pain Level: 0 nausea: No Vomiting: No Complications Anesthesia Complication: No
== END 2024-09-29 13:20 | disposition home or self-care (01) ==
LOC: SDC 10:15 → AC 10:21
PROVIDERS: Anesthesiology; PCP Family Medicine; Referring Provider Surgery Plastic and Reconstructive Surgery; Visit Provider Surgery Plastic and Reconstructive Surgery
PROC: (CPT 11626; principal; 2024-09-29 11:35)
DX: D03.4 Melanoma in situ of scalp and neck (principal); I10 Essential (primary) hypertension; Z87.891 Personal history of nicotine dependence; Z79.899 Other long term (current) drug therapy
CPT/HCPCS: 11626; 12042; 00300; 81025; 88305; J2405